=== PATIENT | female | born 1985 | race Caucasian/White ===

== ENCOUNTER 2017-09-27 09:10 | Inpatient (IN) | payer MEDICAID, SELFPAY ==
[2017-09-27 09:24] VITALS: BMI 29.9
[2017-09-27] MEDS: Lactated Ringers 1,000 ML 50 ML IV ×3 (09:30→18:52)
[2017-09-27 09:55] LABS: Hematocrit 29.9 % (37-47); Hemoglobin 10.4 g/dl (12.0-15.0); Mean Corp Hgb Conc 34.8 g/gl (32-36); Mean Corpuscular Hgb 30.6 pg (27.0-32.0); Mean Corpuscular Volume 87.9 fL (81-99); Mean Platelet Vol. 10.6 fl (6.2-12.0); Platelet Count 183 K/mm3 (150-450); RBC Distribution Width CV 13.1 % (11.6-14.6); RBC Distribution Width SD 42.5 fl (35.1-43.9); White Blood Count 6.8 K/mm3 (4.4-11.0)
[2017-09-27 09:56] LABS: Scan Indicated on CBC? Y/N NO
[2017-09-27] MEDS: Oxytocin 30 units/NS 500 ml 30 UNITS/500 ML IV.SOLN IV (10:15)
[2017-09-27] MEDS: 0.9% Normal Saline 100 ML IV.SOLN. INTRA-UTER (11:15)
--- NOTE | 2017-09-27 11:16 | PCM.HP.OB ---
- Problem List (1) Post-dates Status: Acute Qualifiers: Post-term type: 40-42 weeks gestation Qualified Code(s): O48.0 - Post-term (2) Short interval between pregnancies affecting , antepartum Status: Acute (3) Group B streptococcal infection Status: Acute (4) GBS (group B Streptococcus carrier), +RV culture, currently Status: Acute History Date of Admission: 09/27/17 Final DEJAH: 09/20/17 Final DEJAH Source: LMP Gestational age: 41 Weeks and 0 Days History of this : 32 year old female at 41 weeks by LMP, confirmed by 2nd trimester U/S. Here for postdates induction of labor. at bedside. OB history: Short interval, history of PROM at 40weeks. Allergies No Known Allergies Allergy (Verified 09/04/14 17:25) Current Medications Acetaminophen (Tylenol) 325 - 650 mg PO Q4H PRN PRN PRN Reason: PAIN OR FEVER >100.4F Al Hydroxide/Mg Hydroxide (Mylanta Ii) 15 - 30 ml PO Q4H PRN PRN PRN Reason: INDIGESTION Citric Acid/Sodium Citrate (Bicitra) 30 ml PO UD PRN Lactated Ringer's () 1,000 mls @ 50 mls/hr IV .Q20H DAT Oxytocin/Sodium Chloride () 30 units in 500 mls @ 1 mls/hr IV .Q500H DAT Penicillin G Potassium/Dextrose (Penicillin G Potassium) 3 mu in 50 mls @ 100 mls/hr IV Q4H DAT Nalbuphine HCl (Nubain) 5 - 10 mg IV Q3H PRN PRN PRN Reason: PAIN (4-10/10) Ondansetron HCl (Zofran) 4 mg IV Q8H PRN PRN PRN Reason: NAUSEA Promethazine HCl (Phenergan (Ll)) 6.25 - 12.5 mg IV Q4H PRN PRN; Protocol PRN Reason: IF NAUSEA PERSISTS Sodium Chloride () 5 - 15 ml IV UD DAT Smoking Status: Never smoker Alcohol: None Drug Use: none Number of Fetus(es): 1 Review of Systems Constitutional: Denies: Chills, Fever, Weight Change Cardiovascular: Denies: Chest Pain, Palpitations Respiratory: Denies: Cough, Shortness of breath at rest, Sputum production Gastrointestinal: Denies: Abdominal Pain, Nausea, Vomiting Physical Exam Vitals: Rubella Immune HIV negative HBsAG negative RPR negative GC/CT negative GBS positive O positive General: Alert, Oriented x3, No apparent distress Cardiovascular: Regular rate, Regular Rhythm, No murmurs Lungs: Clear to auscultation Abdomen: Gravid Extremities:: No edema, Deep tendon reflexes - +2/4 bilaterally Presentation: Cephalic Cervix Dilation (cm): 2 - Mendoza bulb inserted, inflated to 30ml NS, patient tolerated well. TOCO: every 3minutes, mild. Pitocin at 2mu's Station: -2 Effacement (%): 50 - FHT 135, moderate variability, accels, Category 1. Assessment/Plan Active and Suspected Problems Post-dates (Acute) Short interval between pregnancies affecting , antepartum (Acute) Group B streptococcal infection (Acute) GBS (group B Streptococcus carrier), +RV culture, currently (Acute) A: 32 year old at 41 weeks for Induction of Labor Post Dates GBS positive Short interval P: 1) Admit to L&D routine orders 2) Mendoza bulb inserted for cervical ripening 3) Pitocin, low dose. Continuous monitoring 4) Planning epidural for pain management. 5) notified of plan and collaborative physician. Karen Ding CNM
[2017-09-27] MEDS: 0.9% Saline Lock 10 ML Syringe IV (12:02)
--- NOTE | 2017-09-27 17:16 | PCM.PN.OB ---
Patient Problems: Active and Suspected Problems Post-dates (Acute) Short interval between pregnancies affecting , antepartum (Acute) Group B streptococcal infection (Acute) GBS (group B Streptococcus carrier), +RV culture, currently (Acute) Subjective: Resting in bed, comfortable with epidural. at bedside. Objective: FHT: 125, moderate variability, accels, early decels, Category 1 TOCO: q2-3.5 minutes, moderate to palpation Pitocin at 5mu's Cervix 5cm/-2 - Physical Exam Weight: 202 lb 6.15 oz Body Mass Index (BMI) 29.9 Intake and Output for Last 24 Hours 09/25/17 09/26/17 09/27/17 23:59 23:59 23:59 Output Total 200 / 200 Balance -200 / -200 Laboratory Tests Past 24 Hrs 09/27/17 09/27/17 09:40 09:40 WBC 6.8 RBC 3.40 L Hgb 10.4 L Hct 29.9 L MCV 87.9 MCH 30.6 MCHC 34.8 RDW 13.1 RDW Differential 42.5 Plt Count 183 MPV 10.6 Blood Type O POSITIVE Antibody Screen NEGATIVE Assessment/Plan Active and Suspected Problems Post-dates (Acute) Short interval between pregnancies affecting , antepartum (Acute) Group B streptococcal infection (Acute) GBS (group B Streptococcus carrier), +RV culture, currently (Acute) A: Pitocin Induction of Labor Active Labor, progressing Category 1 FHT P: 1) Continue with active management and increase on Pitocin. 2) Epidural for pain management
--- NOTE | 2017-09-27 20:01 | PN.OBGYN_ITS ---
Patient Problems: Active and Suspected Problems Post-dates (Acute) Short interval between pregnancies affecting , antepartum (Acute) Group B streptococcal infection (Acute) GBS (group B Streptococcus carrier), +RV culture, currently (Acute) Subjective: Resting in bed, comfortable with epidural. Turned side to side and started to have heart rate decelerations. Objective: FHR with llate decelerations with each contraction down to 60bpm. Pitocin turned off, O2 via face mask at 8L and fluid bolus. Patient turned side to side , FSE placed and then turned to hands and knees. FHR recovered. FHT:125, minimal variability, accels, Category 2 [place]: every 2-3 minutes, strong Cervix: 9cm/90%/-1 - Physical Exam Weight: 202 lb 6.15 oz Body Mass Index (BMI) 29.9 Intake and Output for Last 24 Hours 09/25/17 09/26/17 09/27/17 23:59 23:59 23:59 Output Total 700 / 700 Balance -700 / -700 Laboratory Tests Past 24 Hrs 09/27/17 09/27/17 09:40 09:40 WBC 6.8 RBC 3.40 L Hgb 10.4 L Hct 29.9 L MCV 87.9 MCH 30.6 MCHC 34.8 RDW 13.1 RDW Differential 42.5 Plt Count 183 MPV 10.6 Blood Type O POSITIVE Antibody Screen NEGATIVE Assessment/Plan Active and Suspected Problems Post-dates (Acute) Short interval between pregnancies affecting , antepartum (Acute) Group B streptococcal infection (Acute) GBS (group B Streptococcus carrier), +RV culture, currently (Acute) A: Active Labor, progressing Category 2 FHT P: 1) Continue with Pitocin off 2) Positional changes if tolerance 3) notified of labor progress, decelerations to 60, return to baseline, and recovery. Continue with management at this time.
[2017-09-27] MEDS: Oxytocin 30 units/NS 500 ml 30 UNITS/500 ML IV.SOLN 167 UNITS IV (21:43)
--- NOTE | 2017-09-27 22:05 | PCM.OB.VAG ---
- Problem List (1) Post-dates Status: Acute Qualifiers: Post-term type: 40-42 weeks gestation Qualified Code(s): O48.0 - Post-term (2) Short interval between pregnancies affecting , antepartum Status: Acute (3) Group B streptococcal infection Status: Acute (4) GBS (group B Streptococcus carrier), +RV culture, currently Status: Acute (5) Vaginal delivery Status: Acute (6) First degree perineal laceration during delivery Status: Acute Vaginal Delivery Maternal Presentation: Elective Induction Method of Induction: Pitocin, Mendoza Bulb Medical Reason for Induction: - - Postdates Amniotic Membrane Rupture Type: Artificial Amniotic Fluid Description: Clear, Moderate meconium - Fluid initially clear then in last 1.5hrs during pushing meconium stained fluid. Transition from lightly stained to moderate meconium. Final DEJAH: 09/20/17 Final DEJAH Source: LMP Gestational age: 41 Weeks and 0 Days Date of Procedure: 09/27/17 Pre-Operative Diagnosis: Induction of Labor Post-Operative Diagnosis: Vaginal delivery Surgery/ Procedure Performed: Spontaneous Vaginal Delivery Type of Anesthesia: Epidural Description of Procedure: Labor progressed to 9cm and late decelerations after each contractions for approximately 6 minutes. Return to baseline with minimal variability and accels. Patient then rapidly progressed to complete cervical dilation and +1 station with urge to push. Service Desk Manager and respiratory called to room for delivery due to meconium stained fluid. presentation was OP. Minimal descent with pushing efforts and multiple positions for pushing. notified of FHT in 60s with return back to baseline but close to delivery. of viable male over 1st degree perineal laceration. delivered OP with double nuchal, delivered through and unwound after delivery. Placed on maternal abdomen. Strong cry. Wiped with blankets and mouth and nares suctioned for secretions. Delayed cord clamping until pulsations ceased. Cord clamped and cut by FOB. Pitocin given IVPB after delivery for active 3rd stage management. Placenta delivered via fredrick, intact, 3 vessels cord. Perineum inspected and revealed 1st degree perineal laceration. Repaired with 3.0 vicryl, figure 8 stitch, well approximated and hemostatic. Fundus firm, hemostasis achieved, EBL 200ml. Planning to breastfeed. Mother and baby stable, family bonding well. notified of delivery. Presentation: Vertex - Direct OP Placental Delivery Description: Spontaneous Placenta Disposition: [facility] Cord Vessel Description: 3 Vessels Nuchal Cord Compression: Without compression - Nuchal cord x 2 Cord Entanglement: Around neck x 2, loose Estimated Blood Loss: 200ml Infant A gender: Male (1 minute): 8 (5 minute): 9 Episiotomy Description: None Laceration: Perineal Extension/lac, 1st degree Medications given after delivery: IV Pitocin
[2017-09-27] MEDS: Oxytocin 30 units/NS 500 ml 30 UNITS/500 ML IV.SOLN 334 UNITS IV (22:43)
[2017-09-28 03:09] VITALS: BP 113/61; PULSE 51; RESP 16; TEMP 36.3
--- NOTE | 2017-09-28 03:13 | NURSING ---
pt passed 50 cent piece sized clot when voiding. bleeding otherwise wnl. will monitor
[2017-09-28 07:50] VITALS: BP 107/67; PULSE 59; RESP 14; TEMP 36.6; O2SAT 99
[2017-09-28] MEDS: Prenatal Vits Tablet 1 TABLET PO (10:38)
[2017-09-28 11:58] VITALS: BP 107/68; PULSE 58; RESP 16; TEMP 36.3; O2SAT 99
--- NOTE | 2017-09-28 13:03 | PCM.PN.OB ---
Patient Problems: Active and Suspected Problems Post-dates (Acute) Short interval between pregnancies affecting , antepartum (Acute) Group B streptococcal infection (Acute) GBS (group B Streptococcus carrier), +RV culture, currently (Acute) Vaginal delivery (Acute) First degree perineal laceration during delivery (Acute) Subjective: Doing well per patient and nursing staff. Ambulating and taking PO without difficulty. Voiding and passing flatus. Bottle feeding with no complaints. Denies headache, visual changes, chest pain, shortness of breath, increased vaginal bleeding or large clots. Planning for d/c home tomorrow. - Physical Exam General: Alert, Oriented x3, Cooperative Lungs: Clear to auscultation, Normal air movement Cardiovascular: Regular rate, Regular Rhythm, No murmurs Abdomen: Bowel Sounds Present, Soft, Non Tender, - - Fundus firm 2 below Extremities: No edema, Capillary Refill Less than 3 Seconds, - - Lydia's negative Psych/Mental Status: Normal Affect, Appropriate Vital Signs Temp Pulse Resp BP Pulse Ox 97.3 F L 58 L 16 107/68 99 09/28/17 11:58 09/28/17 11:58 09/28/17 11:58 09/28/17 11:58 09/28/17 11:58 Oxygen Delivery Method Room Air Weight: 202 lb 6.15 oz Body Mass Index (BMI) 29.9 Intake and Output for Last 24 Hours 09/26/17 09/27/17 09/28/17 23:59 23:59 23:59 Intake Total 691 / 691 Output Total 700 / 700 800 / 800 Balance -9 / -9 -800 / -800 Assessment/Plan Active and Suspected Problems Post-dates (Acute) Short interval between pregnancies affecting , antepartum (Acute) Group B streptococcal infection (Acute) GBS (group B Streptococcus carrier), +RV culture, currently (Acute) Vaginal delivery (Acute) First degree perineal laceration during delivery (Acute) A: PPD#1 1st degree perineal laceration P: 1)Routine PP care 2)Bottlefeeding 3)Planning for D/C home tomorrow.
[2017-09-28 15:07] VITALS: BP 119/65; PULSE 62; RESP 14; TEMP 36.5; O2SAT 99
[2017-09-28 18:00] VITALS: BP 127/77; PULSE 58; RESP 16; TEMP 36.7; O2SAT 98
[2017-09-28 20:00] VITALS: BP 110/64; PULSE 60; RESP 16; TEMP 36.3; O2SAT 98
[2017-09-29 02:00] VITALS: BP 130/65; PULSE 60; RESP 14; TEMP 36.6
--- NOTE | 2017-09-29 07:36 | PCM.DCVAG ---
Discharge Diet: No Restrictions Discharge Activity: Return to Normal Activity, May not drive while taking narcotic pain medications., May Shower May resume sexual activity in: 4-6 weeks Additional Activity Instructions:: Nothing in the vagina for 4-6 weeks. You may return to work/school in 6 weeks. Call your doctor if your incision/area has: Continuous Slow Oozing, Sudden Increased Bleeding, Increased Pain/ Swelling, Increased Redness, Foul Smelling Discharge Call your doctor if you observe: Fever of 101 or Higher, Inability to urinate, Inability to have a bowel movement, Using more than one pad per hour, Calf discomfort, Uncontrolled pain Additional Instructions: If you experience any of the following, contact your healthcare provider. Bleeding that soaks a pad every hour for 2 hours Fever 100.4 or higher Unrelieved incision or abdominal pain Swelling, redness, discharge or bleeding from your incision or episiotomy site Your incision begins to separate Problems urinating (including inability to urinate or burning while urinating). Visual changes Severe headache Flu-like symptoms Pain or redness in one of both of your breasts Pain, warmth, tenderness or swelling in your legs, especially the calf area Frequent nausea and vomiting Symptoms of depression or anxiety If you experience any of the following, call 911 or go to the nearest Emergency Room. Chest pain Problems breathing Seizure activity Partial or complete paralysis of a body part, slurred speech, weakness or drooping of the face, or a sudden inability to walk or hold your balance Allergies/Adverse Reactions: Allergies No Known Allergies Allergy (Verified 09/04/14 17:25) Medications to take at Discharge Vits [Prenatabs FA ] 1 tablet PO DAILY 09/04/14 Acetaminophen [Tylenol] 1,000 mg PO Q8H PRN PRN tablet 09/29/17 Naproxen [Naprosyn] 250 - 500 mg PO Q8H PRN PRN tablet 09/29/17 Senna/Docusate Sodium [Senokot-S] 1 - 2 tablet PO DAILY PRN PRN tablet 09/29/17 When: Call to make an appointment with your doctor in 6 weeks. If you had elevated Blood Pressure or 4th degree laceration you will need to be seen in 2 weeks. Primary Care Physician: Care Physician,No Primary [Primary Care Provider] -
--- NOTE | 2017-09-29 07:40 | DCINST_ITS ---
Discharge Diet: No Restrictions Discharge Activity: Return to Normal Activity, May not drive while taking narcotic pain medications., May Shower May resume sexual activity in: 4-6 weeks Additional Activity Instructions:: Nothing in the vagina for 4-6 weeks. You may return to work/school in 6 weeks. Call your doctor if your incision/area has: Continuous Slow Oozing, Sudden Increased Bleeding, Increased Pain/ Swelling, Increased Redness, Foul Smelling Discharge Call your doctor if you observe: Fever of 101 or Higher, Inability to urinate, Inability to have a bowel movement, Using more than one pad per hour, Calf discomfort, Uncontrolled pain Additional Instructions: If you experience any of the following, contact your healthcare provider. * Bleeding that soaks a pad every hour for 2 hours * Fever 100.4 or higher * Unrelieved incision or abdominal pain * Swelling, redness, discharge or bleeding from your incision or episiotomy site * Your incision begins to separate * Problems urinating (including inability to urinate or burning while urinating) . * Visual changes * Severe headache * Flu-like symptoms * Pain or redness in one of both of your breasts * Pain, warmth, tenderness or swelling in your legs, especially the calf area * Frequent nausea and vomiting * Symptoms of depression or anxiety If you experience any of the following, call 911 or go to the nearest Emergency Room. * Chest pain * Problems breathing * Seizure activity * Partial or complete paralysis of a body part, slurred speech, weakness or drooping of the face, or a sudden inability to walk or hold your balance Allergies/Adverse Reactions: Allergies No Known Allergies Allergy (Verified 09/04/14 17:25) Medications to take at Discharge Vits [Prenatabs FA ] 1 tablet PO DAILY 09/04/14 Acetaminophen [Tylenol] 1,000 mg PO Q8H PRN PRN tablet 09/29/17 Naproxen [Naprosyn] 250 - 500 mg PO Q8H PRN PRN tablet 09/29/17 Senna/Docusate Sodium [Senokot-S] 1 - 2 tablet PO DAILY PRN PRN tablet When: Call to make an appointment with your doctor in 6 weeks. If you had elevated Blood Pressure or 4th degree laceration you will need to be seen in 2 weeks. Primary Care Physician: Care Physician,No Primary [Primary Care Provider] -
--- NOTE | 2017-09-29 08:07 | PCM.PN.BLA ---
Progress Note S: Patient laying back in bed, at bedside providing support. Patient reports no issues at this time, desires discharge to home. O: VSS, Afebrile Nipples without cracks, blisters or ecchymoses. Soft breasts. Abdomen soft NT x 4 quadrants, FF midline @ 2FB below umbilicus +2/4 reflexes in LE, no edema, negative calf tenderness BL to palpation scant rubra lochia, intact perineum A: 32 y/o, G3 now P3, PPD # 2 s/p , Normal PP Course P: 1) Discharge to home pending discharge 2) Anticipatory PP and homegoing teaching done 3) Binding of breasts encouraged as patient is not planning on 4) RTC at [facility] @ 6 weeks PP Padmini Cho CNM
--- NOTE | 2017-09-29 08:11 | PN_ITS ---
Progress Note S: Patient laying back in bed, at bedside providing support. Patient reports no issues at this time, desires discharge to home. O: VSS, Afebrile Nipples without cracks, blisters or ecchymoses. Soft breasts. Abdomen soft NT x 4 quadrants, FF midline @ 2FB below umbilicus +2/4 reflexes in LE, no edema, negative calf tenderness BL to palpation scant rubra lochia, intact perineum A: 32 y/o, G3 now P3, PPD # 2 s/p , Normal PP Course P: 1) Discharge to home pending discharge 2) Anticipatory PP and homegoing teaching done 3) Binding of breasts encouraged as patient is not planning on 4) RTC at [facility] @ 6 weeks PP Padmini Cho CNM
[2017-09-29 08:20] VITALS: BP 116/73; PULSE 56; RESP 16; TEMP 36.2; O2SAT 100
== END 2017-09-29 10:10 | disposition home or self-care (01) | DRG 372 ==
PROVIDERS: Admitting Provider Obstetrics & Gynecology; Visit Provider Obstetrics & Gynecology
DX: O48.0 Post-term pregnancy (principal); O98.82 Other maternal infectious and parasitic diseases complicating childbirth; B95.1 Streptococcus, group B, as the cause of diseases classified elsewhere; O77.0 Labor and delivery complicated by meconium in amniotic fluid; O69.81X0 Labor and delivery complicated by cord around neck, without compression, not applicable or unspecified; O76 Abnormality in fetal heart rate and rhythm complicating labor and delivery; O70.0 First degree perineal laceration during delivery; Z3A.41 41 weeks gestation of pregnancy; Z37.0 Single live birth
CPT/HCPCS: 59025; 59050; 85027; 86850; 86900; 99218; J7050; J7120; A4216; G0378

== ENCOUNTER 2023-04-19 09:41 | Emergency (ER) | payer MEDICAID, SELFPAY ==
[2023-04-19 09:42] VITALS: BP 140/103; PULSE 83; RESP 14; TEMP 36.4; O2SAT 99; BMI 30.4
--- NOTE | 2023-04-19 10:03 | EDS_ITS ---
HPI History of Present Illness Chief Complaint: Foreign Body Detail of Chief Complaint: She was setting up a kumari. She stapled her left index and long finger tog Informant: patient Occured/Mechanism Mechanism/Context: Yes injury Comment: Stapled index and long finger together. Onset/Context/Timing Context: Sudden Onset Timing: Continuous Quality of Pain: Dull and Aching Location: Left long finger Current Severity: Mild Maximum Severity: Moderate Worsened by: Movement Relieved by: Nothing Associated Symptoms Associated Symptoms: Negative for Parasthesia or Weakness Narrative Narrative: Patient is a 37-year-old [id number] woman who presents with injury to her left index and long finger. This occurred when she was satting up a kumari. 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 She stapled the volar pad of her index finger and volar pad of her long finger. She was able to get the prong out of the index finger but not the long finger. Last tetanus was 5 years ago. Tetanus Immunization: 5-10 years Prior similar symptoms: No Recent Illness/Hospitalization: No PFSH PFSH Medical History no medical history no medical history Home Medications vits,calcium no.78-iron fumarate-folic acid 29 mg-1 mg tablet (Prenatabs FA) 1 tab PO DAILY 09/04/14 [History Last Taken 09/25/17 one] acetaminophen 500 mg tablet 1,000 mg (2 x 500 mg) PO Q8H PRN PRN MILD PAIN (1- 3/10)/Temp>99.6F 09/29/17 [Rx Last Taken Unknown] naproxen 250 mg tablet 250 - 500 mg (1 - 2 x 250 mg) PO Q8H PRN PRN Mild Pain (1-3/10) 09/29/17 [Rx Last Taken Unknown] sennosides 8.6 mg-docusate sodium 50 mg tablet (Stool Softener-Stimulant Laxative) 1 - 2 tab PO DAILY PRN PRN Constipation 09/29/17 [Rx Last Taken Unknown] Allergy/AdvReac Type Severity Reaction Status Date / Time No Known Allergies Allergy Verified 04/19/23 09:43 Social History Smoking Status: Never smoker ROS ROS ED Integumentary Reports other Details: Puncture wound volar fat pad index finger and long finger, left side ; Denies rash Neurologic Neurologic: Denies paresthesias or weakness Hematologic/Lymphatic Hematologic/Lymphatic: Denies easy bleeding or easy bruising EXAM Physical Exam Const Vital Signs: 04/19/23 09:42 Temperature 97.6 F L Temperature Source Temporal Pulse Rate 83 Respiratory Rate 14 Blood Pressure 140/103 H Blood Pressure Mean 115 Pulse Ox 99 Oxygen Delivery Method Room Air Positive well nourished and well developed General Appearance ED: well developed and NAD HEENT normocephalic and atraumatic Eyes PERRL and EOMs intact bilaterally Resp normal respiratory effort Cardio regular rate and regular rhythm Extremity Extremity Narrative: Puncture wound noted volar fat pad of left index finger. There is no evidence of infection. Staple is still in place volar fat pad of long finger. There is no subungual hematoma of the index or long finger. Extensor and flexor mechanism intact. Two-point discrimination is normal. Neuro oriented x3, CN's II-XII intact bilaterally and moves all extremities Psych mental status grossly normal Skin Skin Narrative: Puncture wound volar fat pad of the index and long finger, left hand MDM MDM MDM Narrative Medical decision making narrative: Patient was informed to anesthetize the digit would be more painful than just removing the staple. The staple was removed using a pair of pliers. Imaging is not indicated. Procedures Other Procedures Procedure(s): Removal of metallic soft tissue foreign body Discharge Plan Triage Chief Complaint: Foreign Body ED Provider: Pio Ferris Dx/Rx/DC Orders Clinical Impression: Foreign body in soft tissue, Puncture wound of left middle finger, Puncture wound of left index finger Instructions: ED Foreign Body Soft Tissue Prescriptions: No Action vit,[id number] [Prenatabs FA] 1 TABLET tablet 1 tab PO DAILY sennosides-docusate sodium [Stool Softener-Stimulant Laxat] 1 TABLET tablet 1 - 2 tab PO DAILY PRN PRN (Reason: Constipation ) 0RF naproxen 250 MG tablet 250 - 500 mg PO Q8H PRN PRN (Reason: Mild Pain (1-3/10)) 0RF acetaminophen 500 MG tablet 1,000 mg PO Q8H PRN PRN (Reason: MILD PAIN (1-3/10)/Temp>99.6F) 0RF Primary Care Provider: Care Physician,No Primary Referrals: Care Physician,No Primary [Primary Care Provider] - Doctor,Your [Non-Staff] - As Needed Activity Restrictions/Additional Instructions: The name of the doctor is on your your insurance card issued to you by [facility] Disposition Disposition: Home, Self Care
== END 2023-04-19 10:29 | disposition home or self-care (01) ==
PROVIDERS: Emergency Provider Emergency Medicine; Visit Provider Emergency Medicine
DX: S61.241A Puncture wound with foreign body of left index finger without damage to nail, initial encounter (principal); S61.243A Puncture wound with foreign body of left middle finger without damage to nail, initial encounter; W29.8XXA Contact with other powered hand tools and household machinery, initial encounter; Y93.89 Activity, other specified
CPT/HCPCS: 99282

== ENCOUNTER 2023-09-08 10:08 | Emergency (ER) | payer MEDICAID, SELFPAY ==
[2023-09-08] VITALS (7 sets, daily range): BP systolic 122–154; BP diastolic 76–90; PULSE 69–82; RESP 14–20; TEMP 36.4–36.6; O2SAT 97–100; BMI 31.7
--- NOTE | 2023-09-08 10:38 | ED.VIS.LOWEX ---
HPI History of Present Illness Chief Complaint: Lower Extremity Injury Informant: patient and spouse/S.O. Narrative Narrative: 38-year-old female presenting to the emergency room with left ankle injury. Patient states that she slipped and fell on ice this morning injuring the ankle. She went to urgent care where she had x-rays that revealed a fracture and was placed in a boot orthosis and referred to the emergency room. She denies any other injuries. In reviewing the films she appears to have a medial and lateral malleoli are fracture with dislocation. Posterior malleolus appears intact. She notes that the toes feel normal and she is able to move them. She has only had water so far this morning. No prior problems with anesthesia. PFSH PFSH Home Medications vits,calcium no.78-iron fumarate-folic acid 29 mg-1 mg tablet (Prenatabs FA) 1 tab PO DAILY 09/04/14 [History Last Taken 09/25/17 one] acetaminophen 500 mg tablet 1,000 mg (2 x 500 mg) PO Q8H PRN PRN MILD PAIN (1-3/10)/Temp>99.6F 09/29/17 [Rx Last Taken Unknown] naproxen 250 mg tablet 250 - 500 mg (1 - 2 x 250 mg) PO Q8H PRN PRN Mild Pain (1-3/10) 09/29/17 [Rx Last Taken Unknown] sennosides 8.6 mg-docusate sodium 50 mg tablet (Stool Softener-Stimulant Laxative) 1 - 2 tab PO DAILY PRN PRN Constipation 09/29/17 [Rx Last Taken Unknown] oxycodone-acetaminophen 5 mg-325 mg tablet 1 tab PO Q6H PRN PRN pain 5 days #20 TABLETS 09/08/23 [Rx Last Taken Unknown] Allergy/AdvReac Type Severity Reaction Status Date / Time No Known Allergies Allergy Verified 09/08/23 10:09 Social History Smoking Status: Never smoker ROS ROS ED Constitutional Constitutional ED: Denies chills, fever(s) or weight loss Eyes Eyes: Denies change in vision or diplopia ENT ENT ED: Denies ear pain, rhinorrhea or sore throat Cardiovascular Cardiovascular: Denies chest pain, orthopnea, palpitations or racing heartbeat Respiratory/Chest Respiratory/Chest: Denies cough, dyspnea or orthopnea Gastrointestinal Gastrointestinal: Denies abdominal pain, diarrhea, nausea or vomiting Genitourinary Genitourinary ED: Denies dysuria, hematuria or urinary frequency Musculoskeletal Musculoskeletal: Reports other Details: Left ankle injury ; Denies arthralgias, back pain, myalgias or neck pain Integumentary Denies abscess or rash Neurologic Neurologic: Denies headache(s) or weakness Psychiatric Psychiatric: Denies anxiety, depression, suicidal ideation or suicidal thoughts Endocrine Endocrinology: Denies polydipsia, polyphagia or polyuria Allergic/Immunologic Allergic/Immunologic ED: Denies mouth swelling, tongue swelling or urticaria EXAM Physical Exam Const Vital Signs: 09/08/23 10:08 09/08/23 10:56 09/08/23 11:08 Temperature 97.8 F 97.8 F Temperature Source Temporal Pulse Rate 78 71 Pulse Rate [1 (Initial Baseline)] 76 Pulse Rate [2] 78 Pulse Rate [5] 81 Pulse Rate [6] 82 Pulse Rate [7] 77 Pulse Rate [8] 70 Pulse Rate [9] 69 Respiratory Rate 14 16 Respiratory Rate [1 (Initial Baseline)] 16 Respiratory Rate [2] 16 Respiratory Rate [5] 16 Respiratory Rate [6] 16 Respiratory Rate [7] 20 H Respiratory Rate [8] 16 Respiratory Rate [9] 16 Blood Pressure 146/89 H 136/87 H Blood Pressure [1 (Initial Baseline)] 137/88 H Blood Pressure [2] 140/87 H Blood Pressure [5] 124/84 H Blood Pressure [6] 128/78 H Blood Pressure [7] 124/77 H Blood Pressure [8] 127/77 H Blood Pressure [9] 122/86 H Blood Pressure Mean 108 Pulse Ox 100 100 Oxygen Delivery Method Room Air Nasal Cannula Oxygen Delivery Method [1 (Initial Baseline)] Nasal Cannula Oxygen Delivery Method [2] Nasal Cannula Oxygen Delivery Method [3] Nasal Cannula Oxygen Delivery Method [5] Nasal Cannula Oxygen Delivery Method [6] Nasal Cannula Oxygen Delivery Method [7] Nasal Cannula Oxygen Delivery Method [8] Nasal Cannula Oxygen Delivery Method [9] Room Air Oxygen Flow Rate (L/min) 2 Oxygen Flow Rate (L/min) [1 (Initial Baseline)] 2 Oxygen Flow Rate (L/min) [2] 3.5 Oxygen Flow Rate (L/min) [5] 3.5 Oxygen Flow Rate (L/min) [6] 3.5 Oxygen Flow Rate (L/min) [7] 3.5 Oxygen Flow Rate (L/min) [8] 3.5 Oxygen Flow Rate (L/min) [9] 0 Fraction of Inspired Oxygen (FIO2) [7] 3.5 09/08/23 11:44 09/08/23 11:49 09/08/23 11:54 Temperature Temperature Source Pulse Rate Pulse Rate [1 (Initial Baseline)] Pulse Rate [2] Pulse Rate [5] Pulse Rate [6] Pulse Rate [7] Pulse Rate [8] Pulse Rate [9] Respiratory Rate Respiratory Rate [1 (Initial Baseline)] Respiratory Rate [2] Respiratory Rate [5] Respiratory Rate [6] Respiratory Rate [7] Respiratory Rate [8] Respiratory Rate [9] Blood Pressure Blood Pressure [1 (Initial Baseline)] Blood Pressure [2] Blood Pressure [5] Blood Pressure [6] Blood Pressure [7] Blood Pressure [8] Blood Pressure [9] Blood Pressure Mean Pulse Ox Oxygen Delivery Method Room Air Room Air Room Air Oxygen Delivery Method [1 (Initial Baseline)] Oxygen Delivery Method [2] Oxygen Delivery Method [3] Oxygen Delivery Method [5] Oxygen Delivery Method [6] Oxygen Delivery Method [7] Oxygen Delivery Method [8] Oxygen Delivery Method [9] Oxygen Flow Rate (L/min) 100 Oxygen Flow Rate (L/min) [1 (Initial Baseline)] Oxygen Flow Rate (L/min) [2] Oxygen Flow Rate (L/min) [5] Oxygen Flow Rate (L/min) [6] Oxygen Flow Rate (L/min) [7] Oxygen Flow Rate (L/min) [8] Oxygen Flow Rate (L/min) [9] Fraction of Inspired Oxygen (FIO2) [7] 09/08/23 12:08 Temperature 97.6 F L Temperature Source Pulse Rate 72 Pulse Rate [1 (Initial Baseline)] Pulse Rate [2] Pulse Rate [5] Pulse Rate [6] Pulse Rate [7] Pulse Rate [8] Pulse Rate [9] Respiratory Rate 16 Respiratory Rate [1 (Initial Baseline)] Respiratory Rate [2] Respiratory Rate [5] Respiratory Rate [6] Respiratory Rate [7] Respiratory Rate [8] Respiratory Rate [9] Blood Pressure 136/76 H Blood Pressure [1 (Initial Baseline)] Blood Pressure [2] Blood Pressure [5] Blood Pressure [6] Blood Pressure [7] Blood Pressure [8] Blood Pressure [9] Blood Pressure Mean 96 Pulse Ox 99 Oxygen Delivery Method Oxygen Delivery Method [1 (Initial Baseline)] Oxygen Delivery Method [2] Oxygen Delivery Method [3] Oxygen Delivery Method [5] Oxygen Delivery Method [6] Oxygen Delivery Method [7] Oxygen Delivery Method [8] Oxygen Delivery Method [9] Oxygen Flow Rate (L/min) Oxygen Flow Rate (L/min) [1 (Initial Baseline)] Oxygen Flow Rate (L/min) [2] Oxygen Flow Rate (L/min) [5] Oxygen Flow Rate (L/min) [6] Oxygen Flow Rate (L/min) [7] Oxygen Flow Rate (L/min) [8] Oxygen Flow Rate (L/min) [9] Fraction of Inspired Oxygen (FIO2) [7] Positive well nourished and well developed General Appearance ED: well developed HEENT Reports normocephalic, head/scalp atraumatic and moist mucous membranes Eyes PERRL and EOMs intact bilaterally Neck no lymphadenopathy, supple and no JVD Resp normal respiratory effort and clear to auscultation bilaterally Cardio regular rate, regular rhythm and no murmurs GI normal to inspection, nondistended, normoactive bowel sounds and non-tender Palpation: soft Back/Spine no CVA tenderness and normal ROM Extremity Extremity Narrative: Left ankle demonstrates diffuse swelling both medial laterally and posteriorly. Neurovascular intact distal. There is tenderness diffusely of the ankle. Neuro oriented x3 and CN's II-XII intact bilaterally Sensorium / Orientation: alert Motor Exam: strength 5/5 throughout Psych mental status grossly normal Mood & Affect: Negative for depressed or tearful Skin no rashes or lesions noted and no wounds MDM MDM MDM Narrative Medical decision making narrative: Patient provided informed written consent for procedural sedation using propofol for the reduction of the fracture/dislocation. Patient was placed on the monitor given supplemental oxygen CO2 and oxygen status were monitored as well as heart rate and blood pressure. Patient initially received 1 mg/kg bolus followed by 0.5 mg/kg aliquots to ensure achieved sedation and maintain sedation for the duration of the procedure. A well-padded posterior stirrup Ortho-Glass splint was placed on the patient. Pain careful attention to allow adequate padding due to the significant swelling which is most likely to occur was made. Patient was allowed to recover without any incidents. I in attempting interpretation of the postreduction films is satisfactory position of the fragments in the mortise. Dr. Brower from foot and ankle was on and came to the emergency department saw the patient. A CT of the lower extremity was obtained for preoperative planning. There appears to be a small avulsion fracture from the posterior malleolus making this therefore a Tri mall fracture. I will write for the patient to have pain medication. She will remain not weightbearing and has crutches. History & Record Review Discussion w/independent historian: Patient and Significant other Lab Data Attestation: I reviewed the patient's lab results. Radiography Diagnostic Testing: Clinical Impression(s) from Imaging Studies Ankle X-Ray 09/08/23 11:35 IMPRESSION: Satisfactory reduction of the medial malleolar fracture as well as the distal lateral malleolar fracture. Soft tissue swelling. Electronically Signed: Ronen Armendariz MD at 11:55 EST , Lower Extremity CT 09/08/23 12:00 IMPRESSION: Nondisplaced avulsion fracture of the medial malleolus as well as oblique fracture of the lateral malleolus with overlying soft tissue swelling. Avulsion fracture of the posterior malleolus of the distal tibia. Persistent asymmetry of the ankle mortise. Electronically Signed: Ronen Armendariz MD at 12:36 EST , Management Discussion w/another healthcare provider: Gas Bo[employer] (Dr. Brower (Podiatry)) Procedures Procedural Sedation 1 (Initial Baseline): Consent Signed: Yes Any Problems With Anesthesia: No You/Your family experience fever (hyperthermia) w/anesthesia: No Sedation medication: Propofol Dose: 250 (mg) Route: IV Total Moderate Sedation Units: 26 (min) Maliampati Score: Class I ASA Classification: I Discharge Plan Triage Chief Complaint: Lower Extremity Injury ED Provider: James Leonard Dx/Rx/DC Orders Clinical Impression: Fall, Left ankle pain, Displaced trimalleolar fracture of left ankle Instructions: ED Ankle Fracture Prescriptions: New oxycodone-acetaminophen [oxycodone-acetaminophen] 5-325 mg tablet 1 tab PO Q6H PRN PRN (Reason: pain) 5 Days Qty: 20 0RF No Action vit,[id number] [Prenatabs FA] 1 TABLET tablet 1 tab PO DAILY sennosides-docusate sodium [Stool Softener-Stimulant Laxat] 1 TABLET tablet 1 - 2 tab PO DAILY PRN PRN (Reason: Constipation ) 0RF naproxen 250 MG tablet 250 - 500 mg PO Q8H PRN PRN (Reason: Mild Pain (-10/23)) 0RF acetaminophen 500 MG tablet 1,000 mg PO Q8H PRN PRN (Reason: MILD PAIN (-10/23)/Temp>99.6F) 0RF Primary Care Provider: Care Physician,No Primary Referrals: Omid Brower DPM [Med Staff - Active Staff] - As soon as possible Care Physician,No Primary [Primary Care Provider] - Disposition Disposition: Home, Self Care Discharge Date/Time: 09/08/23 12:44
[2023-09-08] MEDS: Morphine 4 MG/ML Syringe IV ×2 (10:48→11:50)
[2023-09-08] MEDS: Ondansetron 4 MG/2 ML Vial IV (10:48)
[2023-09-08] MEDS: Propofol 200 MG/20 ML Vial IV BOLUS (10:49)
--- OUTSIDE RECORDS SUMMARY | 2023-09-08 11:00 | XMS RPT_ITS | CCD ---
Author Name Unknown Address [address] [place] [address] Organization [facility] Care Team Providers Care Toddler Teacher Name Role Phone Pcp, No Unavailable Unavailable Pcp, No Unavailable Unavailable JAISONBERTA Attending Unavailable Medications Completed/Discontinued Medications Medication Drug Class(es) Dates Sig (Normalized) Sig (Original) Ethinyl Estradiol / norgestimate (4 sources) Progestin, Estrogen Start: 03-03-2023 take 1 tablet by mouth once daily norgestimate 0.25 mg-ethinyl estradiol 35 mcg (SPRINTEC) 0.25-35 mg-mcg per tablet Take 1 tablet by mouth once daily. 84 tablet 4 03/03/2023 Active Problems Problem Classification Problem Date Documented Da te Episodic/Chronic Contraceptive and procreative management (1 source) Oral contraception; Translations: [Encounter for surveillance of contraceptive pills] 03-03-2023 Episodic Results Test Name Value Interpretation Reference Range Facil ity Vital Signs Date Time Vital Sign Value Performing Clinician Martin rizo 03-03-2023 09:36-0400 Body height 170.2 cm Berta Jaison SENIOR CLIMATE ADVISOR.OR SCRUB TECH Work Phone: [facility] 03-03-2023 09:36-0400 Body weight 89.36 kg Berta Jaison SENIOR CLIMATE ADVISOR.OR SCRUB TECH Work Phone: [facility] 03-03-2023 09:36-0400 Diastolic blood pressure 72 mm[Hg] Berta Huron SENIOR CLIMATE ADVISOR.OR SCRUB TECH Work Phone: [facility] 03-03-2023 09:36-0400 Systolic blood pressure 118 mm[Hg] Berta Huron SENIOR CLIMATE ADVISOR.OR SCRUB TECH Work Phone: [facility] Encounters Encounter Date Encounter Type Care Provider Facility Start: 03-03-2023 End: 03-03-2023 ambulatory BERTAJAYCEE BRAGGJAISON Facility:[facility] Start: 03-03-2023 End: 03-03-2023 Patient encounter procedure Berta Braggcalf SENIOR CLIMATE ADVISOR.BLUE Work Phone: OB/Gynecology Plan of Treatment Date Care Activity Detail Author Start: 07-02-2027 Urine microalbumin profile DTA P,TDAP,TD (4 - Td or Tdap) [facility] Start: 02-27-2026 HPV TESTING HPV TESTING [facility] Start: 02-27-2026 PAP TESTING PAP TESTING [facility] Start: 04-16-2023 Influenza vaccination INFLUENZA (#1) [facility] Start: 08-16-2022 DEPRESSION ASSESSMENT DEPRESSION ASS ESSMENT [facility] Start: 04-16-2022 Influenza vaccination INFLUENZA (#1) [facility] Start: 07-16-2021 COVID-19 VACCINE (3 - Booster for Pfizer series) COVID-19 VACCINE (3 - Booster for Pfizer series) [facility] Start: 07-16-2021 COVID-19 VACCINE (3 - Pfizer series) COVID-19 VACCINE (3 - Pfizer series) [facility] Start: 2003 HEPATITIS C SCREENING HEPATITIS C [facility] Start: 1997 Adult depression scr [facility] assessment DEPRESSION SCREENING [facility] Start: 1985 HEPATITIS B (1 of 3 - 3-dose series) HEPATITIS B (1 of 3 - 3-dose series) [facility] Immunizations Immunization Date Immunization Notes Care Provider Niesha sullivan 07-02-2017 tetanus toxoid, redu dean diphtheria toxoid, and acellular pertussis vaccine, adsorbed Berta Huron SENIOR CLIMATE ADVISOR.OR SCRUB TECH Work Phone: [facility] 05-12-2017 influenza, injectabl e, quadrivalent, contains preservative Berta Jaison SENIOR CLIMATE ADVISOR.OR SCRUB TECH Work Phone: [facility] 01-09-2016 tetanus toxoid, redu dean diphtheria toxoid, and acellular pertussis vaccine, adsorbed Berta Huron SENIOR CLIMATE ADVISOR.BLUE Work Phone: [facility] 07-05-2014 tetanus toxoid, redu dean diphtheria toxoid, and acellular pertussis vaccine, adsorbed Berta Jaison SENIOR CLIMATE ADVISOR.OR SCRUB TECH Work Phone: [facility] Work Phone: 06-06-2014 influenza, seasonal, injectable Berta Huron SENIOR CLIMATE ADVISOR.OR SCRUB TECH Work Phone: [facility] Work Phone: 06-03-2009 influenza virus vaccine, unspecified formulation Berta Huron SENIOR CLIMATE ADVISOR.OR SCRUB TECH Work Phone: [facility] Work Phone: Payers Date Payer Category Payer Medicaid [id number] 2017 Medicaid [id number] Social History Date Type Detail Facility Start: 05-18-2011 Tobacco smoking stat us AZIS Never smoked tobacco [facility] Start: 05-18-2011 Tobacco use and exposure Smoke less tobacco non-user [facility] Start: 07-20-2021 End: 03-03-2023 Alcohol intake Current drinker of alcohol (finding) [facility] Start: 02-26-2014 History SDOH Alcohol Comment occasional, NOT WHILE [facility] Start: 01-15-2020 History SDOH Social Connections Phone 4 [facility] Start: 01-15-2020 History SDOH Social Connections Get Together 2 [facility] Start: 01-15-2020 History SDOH Social Connections L[employer] 3 [facility] Start: 01-15-2020 History SDOH Social Connections Membership 1 [facility] Start: 01-15-2020 History SDOH Financial 5 [facility] Start: 01-15-2020 Education 17 [facility] Start: 1985 Sex Assigned At Not on file [facility] Start: 01-15-2020 End: 03-03-2023 History of Social function [facility] Work Phone: Start: 01-15-2020 End: 03-03-2023 Social connection and isolation panel [facility] Work Phone: Do you belong to any clubs or organizations such as yazidism groups, unions, fraternal or athletic groups, or school groups? Yes [facility] Work Phone: Are you now , , , , never or living with a partner? [facility] Work Phone: How hard is it for y ou to pay for the very basics like food, housing, medical care, and heating Not hard at all [facility] Work Phone: Do you feel stress - tense, restless, nervous, or anxious, or unable to sleep at night because your mind is troubled all the time - these days [OSQ] Not at all [facility] Work Phone: (I/We) worried wheth er (my/our) food would run out before (I/we) got money to buy more. Never true [facility] Work Phone: Progress note 03-03-2023 Note Date & Type Note Facility 03-03-2023 Note HNO ID: [id number] Author: Berta Almazan APRN.OR SCRUB TECH Service: ? Author Type: Nurse Practitioner Type: Progress Notes Filed: 03/03/2023 9:55 AM Note Text: Davina is a 37 year old who presents for an annual gynecologic exam without complaints. Menses: cycles every 21-25 days and 6 days of flow. Contraception: combined hormonal contraceptives HPV vaccine: N/A Last Pap: 03/04/2021 normal HPV: 03/03/2021 negative History of abnormal pap: No Last mammogram: never Sexually active: Yes Pain with intercourse: No Postcoital bleeding: No OB History T3 L3 SAB0 IAB0 Ectopic0 Multiple0 Live Births3 Belt Worker History LMP: 02/08/2023 (Exact Date), Having periods Age at Menarche: Age at First : Age at Menopause: Belt Worker History Comments: Sexual Activity: Yes; Male; Current partner for 7 years Contraception: Condom, Pill PAST MEDICAL HISTORY Diagnosis Date NEGATIVE MEDICAL HISTORY PAST SURGICAL HISTORY Procedure Laterality Date PAST SURGICAL HISTORY OF WISDOM TEETH FAMILY HISTORY Problem Relation Age of Onset Breast Cancer Mother 64 Cancer Maternal Grandmother skin Heart Maternal Grandmother Arthritis Paternal Grandmother Heart Paternal Grandfather SOCIAL HISTORY Social History Tobacco Use Smoking status: Never Smokeless tobacco: Never Vaping Use Vaping Use: Never used Substance Use Topics Alcohol use: Yes Comment: occasional, NOT WHILE Drug use: Never REVIEW OF SYSTEMS Abdomen: No abdominal pain, nausea, vomiting, diarrhea, or constipation. No bloating, early satiety, indigestion, or increased flatulence. Bladder: No dysuria, gross hematuria, urinary frequency, urinary urgency, or incontinence. Breast: No breast lumps, nipple d/c, overlying skin changes, redness or skin retraction. Allergies and current medication updated:Yes EXAM: BP 118/72 Ht 5' 7 (1.70m) Wt 197 lb (89.4kg) LMP 02/08/2023 BMI 30.85 kg/(m2). GENERAL: pleasant, female in no apparent distress HEENT: Normocephalic, atraumatic, mucus membranes moist, and no lesions NECK: Supple, full range of motion, no adenopathy, and thyroid normal DERMATOLOGY: Normal, without lesions, non-icteric, and non-hirsute BREAST: soft, non-tender, symmetric, no dominant mass, normal nipple-areolar complex, no lymphadenopathy, and no nipple discharge CHEST: Normal inspiratory effort ABDOMEN: soft, non-tender, and no masses PELVIC: external genitalia normal, normal Bartholin's glands, urethra, Duque's glands, no vulvar lesions, no cervical lesions, physiologic discharge present, normal appearing perineal body and perianal region BIMANUAL: uterus normal size, shape and consistency, no adnexal masses, and non-tender RECTOVAGINAL: deferred. NEURO: alert and oriented x3,exam grossly non-focal EXTREMITIES: normal ASSESSMENT/PLAN: 1) Health maintenance: Pap/HPV up to date. Mammogram starting age 40. Nutrition, exercise and routine health maintenance exams reviewed. Calcium/Vitamin D supplementation information provided. 2) Contraception: combined hormonal contraceptives. Contraceptive options reviewed and information provided. 3) STD screening: Declined STD check. 4) Follow up one year or sooner as needed Berta Almazan APRN.BLUE [facility] History of Present illness Narrative 03-03-2023 Berta Almazan APRN.BLUE - 03/03/2023 9:33 AM EDT Note Date & Type Note Facility 03-03-2023 History of Presen t illness Narrative Davina is a 37 year old who presents for an annual gynecologic exam without complaints. Menses: cycles every 21-25 days and 6 days of flow. Contraception: combined hormonal contraceptives HPV vaccine: N/A Last Pap: 03/04/2021 normal HPV: 03/03/2021 negative History of abnormal pap: No Last mammogram: never Sexually active: Yes Pain with intercourse: No Postcoital bleeding: No OB History T3 L3 SAB0 IAB0 Ectopic0 Multiple0 Live Births3 Belt Worker History LMP: 02/08/2023 (Exact Date), Having periods Age at Menarche: Age at First : Age at Menopause: Belt Worker History Comments: Sexual Activity: Yes; Male; Current partner for 7 years Contraception: Condom, Pill PAST MEDICAL HISTORY Diagnosis Date NEGATIVE MEDICAL HISTORY PAST SURGICAL HISTORY Procedure Laterality Date PAST SURGICAL HISTORY OF WISDOM TEETH FAMILY HISTORY Problem Relation Age of Onset Breast Cancer Mother 64 Cancer Maternal Grandmother skin Heart Maternal Grandmother Arthritis Paternal Grandmother Heart Paternal Grandfather SOCIAL HISTORY Social History Tobacco Use Smoking status: Never Smokeless tobacco: Never Vaping Use Vaping Use: Never used Substance Use Topics Alcohol use: Yes Comment: occasional, NOT WHILE Drug use: Never REVIEW OF SYSTEMS Abdomen: No abdominal pain, nausea, vomiting, diarrhea, or constipation. No bloating, early satiety, indigestion, or increased flatulence. Bladder: No dysuria, gross hematuria, urinary frequency, urinary urgency, or incontinence. Breast: No breast lumps, nipple d/c, overlying skin changes, redness or skin retraction. Allergies and current medication updated:Yes EXAM: BP 118/72 Ht 5' 7 (1.70m) Wt 197 lb (89.4kg) LMP 02/08/2023 BMI 30.85 kg/(m^2). GENERAL: pleasant, female in no apparent distress HEENT: Normocephalic, atraumatic, mucus membranes moist, and no lesions NECK: Supple, full range of motion, no adenopathy, and thyroid normal DERMATOLOGY: Normal, without lesions, non-icteric, and non-hirsute BREAST: soft, non-tender, symmetric, no dominant mass, normal nipple-areolar complex, no lymphadenopathy, and no nipple discharge CHEST: Normal inspiratory effort ABDOMEN: soft, non-tender, and no masses PELVIC: external genitalia normal, normal Bartholin's glands, urethra, Duque's glands, no vulvar lesions, no cervical lesions, physiologic discharge present, normal appearing perineal body and perianal region BIMANUAL: uterus normal size, shape and consistency, no adnexal masses, and non-tender RECTOVAGINAL: deferred. NEURO: alert and oriented x3,exam grossly non-focal EXTREMITIES: normal ASSESSMENT/PLAN: 1) Health maintenance: Pap/HPV up to date. Mammogram starting age 40. Nutrition, exercise and routine health maintenance exams reviewed. Calcium/Vitamin D supplementation information provided. 2) Contraception: combined hormonal contraceptives. Contraceptive options reviewed and information provided. 3) STD screening: Declined STD check. 4) Follow up one year or sooner as needed Berta Almazan APRN.OR SCRUB TECH documented in this encounter [facility] History of Past illness Narrative 03-17-2017 Note Date & Type Note Facility documented as of this encounter (statuses as of 05/07/2022) [facility] History of Past illness Narrative 03-17-2017 Note Date & Type Note Facility documented as of this encounter (statuses as of 05/11/2022) [facility] History of Past illness Narrative 03-17-2017 Note Date & Type Note Facility documented as of this encounter (statuses as of 03/03/2023) [facility] Evaluation note Note Date & Type Note Facility documented in this encounter [facility] Summary Purpose Family History No Family History Records Found Advance Directives No Advanced Directives Records Found Additional Source Comments Source Comments (unrecognize d section and content) In the event this informatio n is protected by the Federal Confidentiality of Alcohol and Drug Abuse Patient Records regulations: The Federal rules restrict any use of the information to criminally investigate or prosecute any alcohol or drug abuse patient.[facility] the event this information is protected by the Federal Confidentiality of Alcohol and Drug Abuse Patient Records regulations: The Federal rules restrict any use of the information to criminally investigate or prosecute any alcohol or drug abuse patient.[facility] the event this information is protected by the Federal Confidentiality of Alcohol and Drug Abuse Patient Records regulations: The Federal rules restrict any use of the information to criminally investigate or prosecute any alcohol or drug abuse patient.[facility] Reason for Visit (unrecogniz ed section and content) Reason Onset Date Comments Refill Request 05/09/2022 Reason Comments Yearly Exam Care Teams (unrecognized sec tion and content) Toddler Teacher Relationship Specialty Start Date End Date Ynes Bejarano APRN 11/01/15 INFORMATION SOURCE (unrecogn ized section and content) FOR RECORDS PERTAINING TO PATIENTS WHO ARE OR HAVE BEEN ENROLLED IN A CHEMICAL DEPENDENCY/SUBSTANCEABUSE PROGRAM, SOME INFORMATION MAY BE OMITTED. This clinical summary was aggregated from multiple sources. Caution should be exercised in using it in the provision of clinical care. This summary normalizes information from multiple sources, and as a consequence, information in this document may materially change the coding, format and clinical context of patient data. In addition, data may be omitted in some cases. CLINICAL DECISIONS SHOULD BE BASED ON THE PRIMARY CLINICAL RECORDS. [employer] provides no warranty or guarantee of the accuracy or completeness of information in this document.
--- NOTE | 2023-09-08 11:35 | RAD_ITS ---
STUDY: X-RAY - LEFT ANKLE REASON FOR EXAM: Female, 38 years old. Post reduction TECHNIQUE: 3 view(s) of the ankle. COMPARISON: Comparison is made with prior study done earlier today. FINDINGS: Satisfactory reduction of the medial malleolar fracture as well as a fracture through the distal lateral malleolus. Normal medial and lateral malleoli. Normal tibiotalar articulation and ankle mortise. Normal visualized talus and calcaneus. The visualized subtalar, talonavicular, calcaneocuboid and tarsal articulations are normal. Soft tissue swelling. RAD/Ankle min 3 Views IMPRESSION: Satisfactory reduction of the medial malleolar fracture as well as the distal lateral malleolar fracture. Soft tissue swelling. Electronically Signed: Ronen Armendariz MD at 11:55 EST ,
--- NOTE | 2023-09-08 12:00 | CT_ITS ---
CT LEFT LOWER EXTREMITY WITH 3-D IMAGING CLINICAL INDICATION: trauma TECHNIQUE: Axial CT images of the LEFT lower extremity was performed without IV contrast material. Coronal and sagittal reformats were provided. RADIATION DOSAGE (If Supplied By Facility): CTDIvol = ( 15.35 ) mGy, DLP = ( 449.71 ) mGycm COMPARISON: Prior study dated: Radiograph done earlier in the day. FINDINGS: Bones: Nondisplaced avulsion fracture of the medial malleolus. Oblique fracture of the distal lateral malleolus. Persistent asymmetry of the ankle mortise. Tiny avulsion fracture of the posterior malleolus of the distal tibia. Soft Tissues: Soft tissue swelling. CT/Extremity Lower without Contra IMPRESSION: Nondisplaced avulsion fracture of the medial malleolus as well as oblique fracture of the lateral malleolus with overlying soft tissue swelling. Avulsion fracture of the posterior malleolus of the distal tibia. Persistent asymmetry of the ankle mortise. Electronically Signed: Ronen Armendariz MD at 12:36 EST ,
--- NOTE | 2023-09-08 12:02 | CON.PCM_ITS ---
Assessment & Plan Assessment/Plan (1) Displaced trimalleolar fracture of left ankle: QUALIFIERS: Encounter type: initial encounter Fracture type: closed Qualified Code(s): S82.852A - Displaced trimalleolar fracture of left lower leg, initial encounter for closed fracture PLAN: Patient was examined and evaluated. All findings were discussed with the patient. All questions were answered to the patient satisfaction. Patient was status post conscious sedation closed reduction of the left lower extremity ankle fracture. Posterior splint was donned by emergency department. Patient had a CT scan following the closed reduction left ankle that shows an impression of a nondisplaced avulsion fracture of the medial malleolus as well as an oblique fracture of the lateral malleolus with overlying soft tissue swelling. Avulsion fracture of the posterior malleolus of the distal tibia. Educated the patient that she will be nonweightbearing with crutches on the posterior splint and will follow-up in private office for surgical consultation as well as for surgical planning. Will plan for open reduction internal fixation of the bimalleolar ankle fracture with syndesmotic repair to left lower extremity. Educated the patient that it will take approximately 4 to 6 weeks to get her weightbearing as tolerated back in athletic shoes/boots with a [employer]AY[employer] brace. Patient showed understanding of this. 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 Everything that was explained to the patient she showed understanding of. She was discharged from the emergency department with crutches and a posterior splint as well as pain medication will follow-up with Dr. Brower in private office for surgical planning. (2) Left ankle pain: QUALIFIERS: Chronicity: acute Qualified Code(s): M25.572 - Pain in left ankle and joints of left foot (3) Fall: QUALIFIERS: Encounter type: initial encounter Qualified Code(s): W19.XXXA - Unspecified fall, initial encounter HPI Consult Data Date of Consult: 09/08/23 HPI Narrative Reason for Consultation: Left lower extremity ankle fracture HPI Narrative: ALVIN HURST, is a 38 F who presents to the emergency department at [facility] with a chief complaint of left ankle injury. Patient states that she slipped on ice [place] this morning around 7 AM. She presented to urgent care who did left ankle x-rays and told the patient she broke/fractured her left ankle. She was placed in a boot and referred to the emergency room for evaluation and workup. Patient has no real history of broken bones in the past. 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 Radiographs show bimalleolar fracture with slight lateralization of the talus with a posterior malleoli bolus intact. Patient was ultimately closed reduced in the emergency department and placed in a posterior splint with CT scan to follow. She denies any constitutional symptoms. No other pedal complaints at this time. [facility] Home Medications vits,calcium no.78-iron fumarate-folic acid 29 mg-1 mg tablet (Pr enatabs FA) 1 tab PO DAILY 09/04/14 [History Last Taken 09/25/17 one] acetaminophen 500 mg tablet 1,000 mg (2 x 500 mg) PO Q8H PRN PRN MILD PAIN (1- 3/10)/Temp>99.6F 09/29/17 [Rx Last Taken Unknown] naproxen 250 mg tablet 250 - 500 mg (1 - 2 x 250 mg) PO Q8H PRN PRN Mild Pain (1-3/10) 09/29/17 [Rx Last Taken Unknown] sennosides 8.6 mg-docusate sodium 50 mg tablet (Stool Softener-Stimulant Laxative) 1 - 2 tab PO DAILY PRN PRN Constipation 09/29/17 [Rx Last Taken Unknown] oxycodone-acetaminophen 5 mg-325 mg tablet 1 tab PO Q6H PRN PRN pain 5 days #20 TABLETS 09/08/23 [Rx Last Taken Unknown] Allergy/AdvReac Type Severity Reaction Status Date / Time No Known Allergies Allergy Verified 09/08/23 10:09 Social History Smoking Status: Never smoker Physical Exam Narrative Neurovascular status is intact. Patient is status post closed reduction to left lower extremity with conscious sedation. Light touch is intact. Nonpitting edema appreciated to the distal and proximal posterior splint. Active and passive range of motion of lesser digits is pain-free. There is mild palpatory tenderness appreciated to the distal fibula and medial malleolus over the posterior splint. No pain with calf compression. Const alert, oriented x3, no apparent distress and well nourished Imagaing Radiology Impression Ankle X-Ray 09/08/23 11:35 IMPRESSION: Satisfactory reduction of the medial malleolar fracture as well as the distal lateral malleolar fracture. Soft tissue swelling. Electronically Signed: Ronen Armendariz MD at 11:55 EST ,
== END 2023-09-08 12:44 | disposition home or self-care (01) ==
PROVIDERS: Emergency Provider Emergency Medicine; Visit Provider Emergency Medicine
DX: S82.852A Displaced trimalleolar fracture of left lower leg, initial encounter for closed fracture (principal); W00.0XXA Fall on same level due to ice and snow, initial encounter
CPT/HCPCS: 27810; 73610; 73700; 96374; 96375; 96376; 99152; 99153; 99284; J7030; A4216; J2405

== ENCOUNTER → 2023-09-16 | Outpatient (CLI) | payer MEDICAID, SELFPAY ==
--- OUTSIDE RECORDS SUMMARY | 2023-09-16 10:57 | XMS RPT_ITS | CCD ---
Author Name Unknown Address [address] [place] [address] Organization [facility] Care Team Providers Care Paving Bed Maker Name Role Phone Pcp, No Unavailable Unavailable Pcp, No Unavailable Unavailable ELIZABETH PRESCOTT Referring Unavailable BERTA BLACKWOOD Attending Unavailable Medications Completed/Discontinued Medications Medication Drug Class(es) Dates Sig (Normalized) Sig (Original) Ethinyl Estradiol / norgestimate (4 sources) Progestin, Estrogen Start: 03-03-2023 take 1 tablet by mouth once daily norgestimate 0.25 mg-ethinyl estradiol 35 mcg (SPRINTEC) 0.25-35 mg-mcg per tablet Take 1 tablet by mouth once daily. 84 tablet 4 03/03/2023 Active Problems Problem Classification Problem Date Documented Date Episodic/Chronic Contraceptive and procreative management (1 source) Oral contraception; Translations: [Encounter for surveillance of contraceptive pills] 03-03-2023 Episodic Other injuries and conditions due to external causes (1 source) Unspecified injury of left ankle, initial encounter; Translations: [Left ankle injury, initial encounter] Onset: 09-08-2023 Episodic Results Test Name Value Interpretation Reference Range Facil ity Vital Signs Date Time Vital Sign Value Performing Clinician Martin rizo 03-03-2023 09:36-0400 Body height 170.2 cm Berta Norah DUST HANDLER.BOILER RELINER Work Phone: [facility] 03-03-2023 09:36-0400 Body weight 89.36 kg Berta Norah DUST HANDLER.BOILER RELINER Work Phone: [facility] 03-03-2023 09:36-0400 Diastolic blood pressure 72 mm[Hg] Berta Washington DUST HANDLER.BOILER RELINER Work Phone: [facility] 07-19-2023 09:36-0400 Systolic blood pressure 118 mm[Hg] Berta Acostaf DUST HANDLER.BLUE Work Phone: [facility] Encounters Encounter Date Encounter Type Care Provider Facility Start: 09-08-2023 End: 09-08-2023 ambulatory ELIZABETH PRESCOTT Facility:[facility] Start: 03-03-2023 End: 03-03-2023 ambulatory BERTA BLACKWOOD Facility:[facility] Start: 03-03-2023 End: 03-03-2023 Patient encounter procedure Berta Acostaf DUST HANDLER.BOILER RELINER Work Phone: OB/Gynecology Plan of Treatment Date Care Activity Detail Author Start: 07-02-2027 Urine microalbumin profile DTA P,TDAP,TD (4 - Td or Tdap) [facility] Start: 02-27-2026 HPV TESTING HPV TESTING [facility] Start: 02-27-2026 PAP TESTING PAP TESTING [facility] Start: 04-16-2023 Influenza vaccination INFLUENZA (#1) [facility] Start: 08-16-2022 DEPRESSION ASSESSMENT DEPRESSION ASS ESSMENT [facility] Start: 04-16-2022 Influenza vaccination INFLUENZA (#1) [facility] Start: 07-16-2021 COVID-19 VACCINE (3 - Booster for Pfizer series) COVID-19 VACCINE (3 - Booster for Pfizer series) [facility] Start: 07-16-2021 COVID-19 VACCINE (3 - Pfizer series) COVID-19 VACCINE (3 - Pfizer series) [facility] Start: 2003 HEPATITIS C SCREENING HEPATITIS C [facility] Start: 1997 Adult depression [facility] assessment DEPRESSION SCREENING [facility] Start: 1985 HEPATITIS B (1 of 3 - 3-dose series) HEPATITIS B (1 of 3 - 3-dose series) [facility] Immunizations Immunization Date Immunization Notes Care Provider Niesha sullivan 07-02-2017 tetanus toxoid, redu dean diphtheria toxoid, and acellular pertussis vaccine, adsorbed Berta Blackwood APRN.CNP Work Phone: [facility] 05-12-2017 influenza, injectabl e, quadrivalent, contains preservative Berta Blackwood APRN.LBUE Work Phone: [facility] 01-09-2016 tetanus toxoid, redu dean diphtheria toxoid, and acellular pertussis vaccine, adsorbed Berta Norah DUST HANDLER.BOILER RELINER Work Phone: [facility] 07-05-2014 tetanus toxoid, redu dean diphtheria toxoid, and acellular pertussis vaccine, adsorbed Berta Norah DUST HANDLER.BOILER RELINER Work Phone: [facility] Work Phone: 06-06-2014 influenza, seasonal, injectable Berta Norah DUST HANDLER.BOILER RELINER Work Phone: [facility] Work Phone: 06-03-2009 influenza virus vaccine, unspecified formulation Berta Washington DUST HANDLER.BOILER RELINER Work Phone: [facility] Work Phone: Payers Date Payer Category Payer Medicaid [id number] 2017 Medicaid [id number] Social History Date Type Detail Facility Start: 05-18-2011 Tobacco smoking stat us TNIS Never smoked tobacco [facility] Start: 05-18-2011 Tobacco use and exposure Smoke less tobacco non-user [facility] Start: 07-20-2021 End: 03-03-2023 Alcohol intake Current drinker of alcohol (finding) [facility] Start: 02-26-2014 History SDOH Alcohol Comment occasional, NOT WHILE [facility] Start: 01-15-2020 History SDOH Social Connections Phone 4 [facility] Start: 01-15-2020 History SDOH Social Connections Get Together 2 [facility] Start: 01-15-2020 History SDOH Social Connections [facility] 3 [facility] Start: 01-15-2020 History SDOH Social Connections Membership 1 [facility] Start: 01-15-2020 History SDOH Financial 5 [facility] Start: 01-15-2020 Education 17 [facility] Start: 1985 Sex Assigned At Not on file C [facility] Start: 01-15-2020 End: 03-03-2023 [facility] Work Phone: Start: 01-15-2020 End: 03-03-2023 Social connection and isolation panel [facility] Work Phone: Do you belong to any clubs or organizations such as gnosticism groups, unions, fraternal or athletic groups, or school groups? Yes [facility] Work Phone: Are you now , , , , never or living with a partner? [facility] Work Phone: How hard is it for y ou to pay for the very basics like food, housing, medical care, and heating Not hard at all [facility] Work Phone: Do you feel stress - tense, restless, nervous, or anxious, or unable to sleep at night because your mind is troubled all the time - these days [OSQ] Not at all [facility] Work Phone: (I/We) worried wheth er (my/our) food would run out before (I/we) got money to buy more. Never true [facility] Work Phone: Progress note 09-08-2023 Note Date & Type Note Facility 09-08-2023 Note HNO ID: [id number] Author: TASHIA MAK RT(R) Service: Radiology Author Type: Technologist Type: Progress Notes Filed: 09/08/2023 09:37 Note Text: Radiology Service Progress Note PATIENT NAME: Davina Bishop DATE OF SERVICE: September 08, 2023 TIME: 9:27 AM PATIENT IDENTITY VERIFICATION COMPLETED USING TWO (2) IDENTIFIERS: Name and Date of confirmed by patient verbally. FALL SCREENING: Has the patient had 2 falls in the last year or 1 fall with injury or currently using an Ambulatory Assistive Device (Walker, Cane, Wheelchair, Crutches, etc.)? No PATIENT GENDER DATA: Female. status: : No status: NO. PATIENT RELEVANT IMPLANT DATA REVIEWED: Yes RADIOLOGY DEPARTMENT: General X-ray: Exam(s) Completed: Lower Extremity X-Ray(s): Ankle, Left PERIPHERAL IV DATA: Not applicable SIGNED BY: RT Carla(R) September 08, 2023 9:27 AM [facility] Progress note 09-08-2023 Note Date & Type Note Facility 09-08-2023 Note HNO ID: [id number] Author: ELIZABETH PRESCOTT APRN.BOILER RELINER Service: ? Author Type: Nurse Practitioner Type: Progress Notes Filed: 09/08/2023 11:03 Note Text: Subjective HPI Davina Bishop is a 38 year old female who presents with left ankle pain. She slipped and fell on the ice this morning about 2 hours ago. She rates her pain 7/10 at rest. She states it is worse with movement or weight bearing. She took Ibuprofen at home. She denies pain or injury to her foot or knee. Review of Systems Constitutional: Negative for chills and fever. Musculoskeletal: Positive for falls and joint pain. Skin: Negative for itching and rash. BP 132/84 Pulse 96 Temp 36.9 ?C (98.4 ?F) Resp 16 Wt 89.4 kg (197 lb) LMP 02/08/2023 (Exact Date) SpO2 99% BMI 30.85 kg/m? PAST MEDICAL HISTORY Diagnosis Date NEGATIVE MEDICAL HISTORY PAST SURGICAL HISTORY Procedure Laterality Date PAST SURGICAL HISTORY OF WISDOM TEETH ALLERGIES Patient has no known allergies. MEDICATIONS norgestimate 0.25 mg-ethinyl estradiol 35 mcg (SPRINTEC) 0.25-35 mg-mcg per tablet Take 1 tablet by mouth once daily. FAMILY HISTORY Problem Relation Age of Onset Breast Cancer Mother 64 Cancer Maternal Grandmother skin Heart Maternal Grandmother Arthritis Paternal Grandmother Heart Paternal Grandfather Social History Tobacco Use Smoking status: Never Smokeless tobacco: Never Vaping Use Vaping Use: Never used Substance Use Topics Alcohol use: Yes Comment: occasional, NOT WHILE Drug use: Never Objective Physical Exam Vitals and nursing note reviewed. Constitutional: General: She is not in acute distress. Appearance: Normal appearance. Musculoskeletal: General: Swelling, tenderness and signs of injury present. Left lower leg: Edema present. Left ankle: Swelling and ecchymosis present. Tenderness present over the medial malleolus. Decreased range of motion. Normal pulse. Left Achilles Tendon: Normal. No tenderness. Skin: General: Skin is warm and dry. Capillary Refill: Capillary refill takes less than 2 seconds. Findings: Bruising present. No erythema or rash. Neurological: Mental Status: She is alert. ASSESSMENT/PLAN: 1. Left ankle injury, initial encounter - ICD9: 959.7, ICD10: S99.912A (primary diagnosis) - XR ANKLE GENERAL 3V AP/LAT/OBL LEFT FINDINGS: Acute, transverse, mildly comminuted fracture of the medial malleolus with lateral displacement of the distal fracture fragment. Acute, oblique fracture of the lateral malleolus with half shaft width lateral displacement of the distal fracture fragment and with overlapping of the fracture fragments by approximately 2.5 cm. Lateral subluxation of the talus relative to the distal tibia with associated widening of the medial ankle mortise. IMPRESSION: Acute bimalleolar fracture as described. Lateral subluxation of the talus relative to the distal tibia with associated widening of the medial ankle mortise. [employer] Bi Architect: ELIDIA Transcribe Date/Time: Sep 08 2023 9:56A Dictated by : CATERINA RECINOS MD 2. Closed fracture of left ankle, initial encounter - ICD9: 824.8, ICD10: S82.892A - CONSULT PANEL TO ORTHOPAEDICS - Patient placed in Aircast boot and referred to ER for further evaluation and treatment. [facility] orthopedic provider not available today. Options for ER treatment given to patient, including contacting ortho pulmonary specialist at [facility]; she will go to [place] ED. Copy of XRAY sent with patient. Report sent via ER passport. Elizabeth Prescott APRN.BLUE [facility] Progress note 03-03-2023 Note Date & Type Note Facility 03-03-2023 Note HNO ID: [id number] Author: Berta Blackwood APRN.BLUE Service: ? Author Type: Nurse Practitioner Type: [...] L3 SAB0 IAB0 Ectopic0 Multiple0 Live Births3 Apron Trimmer History LMP: 02/08/2023 (Exact Date), Having periods Age at Menarche: Age at First : Age at Menopause: Apron Trimmer History Comments: Sexual Activity: Yes; Male; Current [...] external genitalia normal, normal Bartholin's glands, urethra, Hilbert's glands, no vulvar lesions, no cervical lesions, [...] one year or sooner as needed Berta Blackwood APRN.BLUE [facility] History of Present illness Narrative 03-03-2023 Berta Blackwood APRN.BLUE - 03/03/2023 9:33 AM EDT Note [...] L3 SAB0 IAB0 Ectopic0 Multiple0 Live Births3 Apron Trimmer History LMP: 02/08/2023 (Exact Date), Having periods Age at Menarche: Age at First : Age at Menopause: Apron Trimmer History Comments: Sexual Activity: Yes; Male; Current [...] external genitalia normal, normal Bartholin's glands, urethra, Hilbert's glands, no vulvar lesions, no cervical lesions, [...] one year or sooner as needed Berta Blackwood APRN.BLUE documented in this encounter [facility] History of Past illness Narrative 03-17-2017 Note Date & Type Note Facility documented as of this encounter (statuses as of 05/07/2022) [facility] History of Past illness Narrative 03-17-2017 Note Date & Type Note Facility documented as of this encounter (statuses as of 05/11/2022) [facility] History of Past illness Narrative 03-17-2017 Note Date & Type Note Facility documented as of this encounter (statuses as of 03/03/2023) [facility] Evaluation note Note Date & Type Note Facility documented in this encounter [facility] Summary Purpose Family History No Family History [...] or prosecute any alcohol or drug abuse patient.[facility] the event this information is protected by the Federal Confidentiality of Alcohol and Drug Abuse Patient Records regulations: The Federal rules restrict any use of the information to criminally investigate or prosecute any alcohol or drug abuse patient.[facility] the event this information is protected by the Federal Confidentiality of Alcohol and Drug Abuse Patient Records regulations: The Federal rules restrict any use of the information to criminally investigate or prosecute any alcohol or drug abuse patient.[facility] Reason for Visit (unrecogniz ed section and content) Reason Onset Date Comments Refill Request 05/09/2022 Reason Comments Yearly Exam Care Teams (unrecognized sec tion and content) Paving Bed Maker Relationship Specialty Start Date End Date Ynes [...] BE BASED ON THE PRIMARY CLINICAL RECORDS. [facility] [employer] [facility]. provides no warranty or guarantee of the accuracy or completeness of information in this document.
[2023-09-16 12:09] LABS: Absolute Lymphocyte Count 1.89 X10^3/uL (0.83-4.51); Absolute Neutrophil Count 5.4 X10^3/uL (2.0-7.7); Basophil# 0.07 X10^3/uL; Basophil% 0.8 % (0-1); Eosinophil# 0.31 X10^3/uL; Eosinophils% 3.8 % (0-5); Hematocrit 39.2 % (37-47); Hemoglobin 12.8 g/dL (12.0-15.0); Lymphocyte # 1.89 X10^3/ul (0.83-4.51); Lymphocyte % 22.9 % (19-41); Mean Corp Hgb Conc 32.7 g/dL (32-36); Mean Corpuscular Hgb 28.7 pg (27.0-32.0); Mean Corpuscular Volume 87.9 fL (81-99); Monocyte# 0.51 X10^3/uL; Monocyte% 6.2 % (0-10); NRBC Flagged by Analyzer 0 % (0-5); Neutrophil # 5.43 X10^3/uL (2.7-7.7); Neutrophil % 65.8 % (47-70); Platelet Count 350 K/mm3 (150-450); RBC Distribution Width CV 12.5 % (11.6-14.6); RBC Distribution Width SD 39.8 fl (35.1-43.9); Red Blood Count 4.46 M/mm3 (4.2-5.4); White Blood Count 8.3 K/mm3 (4.4-11.0)
[2023-09-16 12:35] LABS: ALB/GLOB Ratio 0.7 RATIO (0.9-2.4); AST(SGOT) 18 U/L (15-37); Alanine Aminotransfer ALT/SGPT 31 U/L (13-56); Albumin, Serum 3.2 g/dL (3.2-5.0); Alkaline Phosphatase 76 U/L (45-117); Anion Gap 3 (5-15); BUN 20 mg/dL (7-18); BUN/Creat Ratio 25.4 RATIO (10-20); Calcium,Total 9.3 mg/dL (8.5-10.1); Chloride 103 mmol/L (98-107); Cholesterol 204 mg/dL (200); Creatinine, Serum 0.79 mg/dL (0.55-1.02); EST Glomerular Filtration Rate 87 mL/min (>60); Est Glom Filt Rate - Afr Amer 105 mL/min (>60); Globulin 4.9 g/dL (2.2-4.2); Glucose 83 mg/dL (74-106); High Density Lipoprotein 56 mg/dL; Potassium 4.5 mmol/L (3.5-5.1); Protein, Total 8.1 g/dL (6.4-8.2); Sodium Level 133 mmol/L (136-145); Triglycerides 164 mg/dL; Very Low Density Lipoprotein 33 mg/dL (5-40)
[2023-09-16 12:49] LABS: Hemoglobin A1c 5.1 % (3.8-5.6)
[2023-09-20 11:18] LABS: Magnesium 2.2 mg/dL (1.6-2.6)
== END | disposition home or self-care (01) ==
LOC: BIMLAB 09:09
PROVIDERS: Podiatrist Foot & Ankle Surgery; PCP Nurse Practitioner; Referring Provider Nurse Practitioner; Visit Provider Nurse Practitioner
DX: Z00.00 Encounter for general adult medical examination without abnormal findings (principal)
CPT/HCPCS: 36415; 80053; 80061; 83036; 83735; 85025

== ENCOUNTER 2023-09-24 09:03 | Day surgery (SDC) | payer MEDICAID, SELFPAY ==
[2023-09-21 10:46] LABS: COTININE Drug Screen Negative (<200 ng/mL)
[2023-09-21 11:19] LABS: Vitamin D,25 Hydroxy 24.2 ng/mL
[2023-09-24] VITALS (8 sets, daily range): BP systolic 123–144; BP diastolic 83–97; PULSE 77–97; RESP 14–18; TEMP 36.2–36.4; O2SAT 96–100; BMI 31.9
--- OUTSIDE RECORDS SUMMARY | 2023-09-24 09:17 | XMS RPT_ITS | CCD ---
Author Name Unknown Address [address] [place] [address] Organization [facility] Care Team Providers Care Fitness Instructor Name Role Phone Pcp, No Unavailable Unavailable [...] 09:36-0400 Body height 170.2 cm Berta Norah FUNCTIONAL CONSULTANT.PHOTOGRAPHIC LITHOGRAPHER Work Phone: [facility] 03-03-2023 09:36-0400 Body weight 89.36 kg Berta Norah FUNCTIONAL CONSULTANT.PHOTOGRAPHIC LITHOGRAPHER Work Phone: [facility] 03-03-2023 09:36-0400 Diastolic blood pressure 72 mm[Hg] Berta Manakin Sabot FUNCTIONAL CONSULTANT.PHOTOGRAPHIC LITHOGRAPHER Work Phone: [facility] 07-19-2023 09:36-0400 Systolic blood pressure 118 mm[Hg] Berta Acostaf FUNCTIONAL CONSULTANT.BLUE Work Phone: [facility] Encounters Encounter Date Encounter Type Care Provider Facility Start: 09-08-2023 End: 09-08-2023 ambulatory ELIZABETH PRESCOTT Facility:[facility] Start: 03-03-2023 End: 03-03-2023 ambulatory BERTA BLACKWOOD Facility:[facility] Start: 03-03-2023 End: 03-03-2023 Patient encounter procedure Berta Acostaf FUNCTIONAL CONSULTANT.PHOTOGRAPHIC LITHOGRAPHER Work Phone: OB/Gynecology Plan of Treatment Date Care Activity Detail Author Start: 07-02-2027 Urine microalbumin profile DTA P,TDAP,TD (4 - Td or Tdap) [facility] Start: 02-27-2026 HPV TESTING HPV TESTING [facility] Start: 02-27-2026 PAP TESTING PAP TESTING [facility] Start: 04-16-2023 Influenza vaccination INFLUENZA (#1) [facility] Start: 08-16-2022 DEPRESSION ASSESSMENT DEPRESSION ASS ESSMENT [facility] Start: 04-16-2022 Influenza vaccination INFLUENZA (#1) [facility] Start: 07-16-2021 COVID-19 VACCINE (3 - Booster for Pfizer series) COVID-19 VACCINE (3 - Booster for Pfizer series) [facility] Start: 07-16-2021 COVID-19 VACCINE (3 - Pfizer series) COVID-19 VACCINE (3 - Pfizer series) [facility] Start: 2003 HEPATITIS [facility] Start: 1997 Adult depression [facility] assessment DEPRESSION SCREENING [facility] Start: 1985 HEPATITIS B (1 of 3 - 3-dose series) HEPATITIS B (1 of 3 - 3-dose series) [facility] Immunizations Immunization Date Immunization Notes Care Provider Niesha sullivan 07-02-2017 tetanus toxoid, redu dean diphtheria toxoid, and acellular pertussis vaccine, adsorbed Berta Blackwood APRN.CNP Work Phone: [facility] 05-12-2017 influenza, injectabl e, quadrivalent, contains preservative Berta Blackwood APRN.BLUE Work Phone: [facility] 01-09-2016 tetanus toxoid, redu dean diphtheria toxoid, and acellular pertussis vaccine, adsorbed Berta Norah FUNCTIONAL CONSULTANT.PHOTOGRAPHIC LITHOGRAPHER Work Phone: [facility] 07-05-2014 tetanus toxoid, redu dean diphtheria toxoid, and acellular pertussis vaccine, adsorbed Berta Norah FUNCTIONAL CONSULTANT.PHOTOGRAPHIC LITHOGRAPHER Work Phone: [facility] Work Phone: 06-06-2014 influenza, seasonal, injectable Berta Norah FUNCTIONAL CONSULTANT.PHOTOGRAPHIC LITHOGRAPHER Work Phone: [facility] Work Phone: 06-03-2009 influenza virus vaccine, unspecified formulation Berta Manakin Sabot FUNCTIONAL CONSULTANT.PHOTOGRAPHIC LITHOGRAPHER Work Phone: [facility] Work Phone: Payers Date Payer Category Payer Medicaid [id number] 2017 Medicaid [id number] Social History Date Type Detail Facility Start: 05-18-2011 Tobacco smoking stat us TNIS Never smoked tobacco [facility] Start: 05-18-2011 Tobacco use and exposure Smoke less tobacco non-user [facility] Start: 07-20-2021 End: 03-03-2023 Alcohol intake Current drinker of alcohol (finding) [facility] Start: 02-26-2014 History SDOH Alcohol Comment occasional, NOT WHILE [facility] Start: 01-15-2020 History SDOH Social Connections Phone 4 [facility] Start: 01-15-2020 History SDOH Social Connections Get Together 2 [facility] Start: 01-15-2020 History SDOH Social Connections Holiness 3 [facility] Start: 01-15-2020 History SDOH Social Connections Membership 1 [facility] Start: 01-15-2020 History SDOH Financial 5 [facility] Start: 01-15-2020 Education 17 [facility] Start: 1985 Sex Assigned At Not on file [facility] Start: 01-15-2020 End: 03-03-2023 History of Social function [facility] Work Phone: Start: 01-15-2020 End: 03-03-2023 Social connection and isolation panel [facility] Work Phone: Do you belong to any clubs or organizations such as advent groups, unions, fraternal or athletic groups, or school groups? Yes [facility] Work Phone: Are you now , , , , never or living with a partner? [facility] Work Phone: How hard is it for y ou to pay for the very basics like food, housing, medical care, and heating Not hard at all [facility] Work Phone: Do you feel stress - tense, restless, nervous, or anxious, or unable to sleep at night because your mind is troubled all the time - these days [OSQ] Not at all [facility] Work Phone: (I/We) worried wheth er (my/our) food would run out before (I/we) got money to buy more. Never true [facility] Work Phone: Progress note 09-08-2023 Note Date & Type Note Facility 09-08-2023 Note HNO ID: [id number] Author: TASHIA MAK RT(R) Service: Radiology Author [...] RT Carla(R) September 08, 2023 9:27 AM [facility] Progress note 09-08-2023 Note Date & Type Note Facility 09-08-2023 Note HNO ID: [id number] Author: ELIZABETH PRESCOTT APRN.PHOTOGRAPHIC LITHOGRAPHER Service: ? Author Type: Nurse Practitioner Type: [...] associated widening of the medial ankle mortise. Machine Helper: ELIDIA Transcribe Date/Time: Sep 08 2023 9:56A Dictated by : CATERINA RECINOS MD 2. Closed fracture of left ankle, initial encounter - ICD9: 824.8, ICD10: S82.892A - CONSULT PANEL TO ORTHOPAEDICS - Patient placed in Aircast boot and referred to ER for further evaluation and treatment. [facility] orthopedic provider not available today. Options for ER treatment given to patient, including contacting ortho supervisor electronic testing at [facility]; she will go to [place] ED. Copy of XRAY sent with patient. Report sent via ER passport. Elizabeth Prescott APRN.BLUE [facility] Progress note 03-03-2023 Note Date & Type Note Facility 03-03-2023 Note HNO ID: [id number] Author: Berta Blackwood APRN.BLUE Service: ? Author [...] L3 SAB0 IAB0 Ectopic0 Multiple0 Live Births3 Sailing Officer History LMP: 02/08/2023 (Exact Date), Having periods Age at Menarche: Age at First : Age at Menopause: Sailing Officer History Comments: Sexual Activity: Yes; Male; Current [...] external genitalia normal, normal Bartholin's glands, urethra, Section's glands, no vulvar lesions, no cervical lesions, [...] or sooner as needed Berta Blackwood APRN.BLUE [facility] History of Present illness Narrative [...] L3 SAB0 IAB0 Ectopic0 Multiple0 Live Births3 Sailing Officer History LMP: 02/08/2023 (Exact Date), Having periods Age at Menarche: Age at First : Age at Menopause: Sailing Officer History Comments: Sexual Activity: Yes; Male; Current [...] external genitalia normal, normal Bartholin's glands, urethra, Section's glands, no vulvar lesions, no cervical lesions, [...] Berta Blackwood APRN.BLUE documented in this encounter [facility] History of Past illness Narrative 03-17-2017 Note Date & Type Note Facility documented as of this encounter (statuses as of 05/07/2022) [facility] History of Past illness Narrative 03-17-2017 Note Date & Type Note Facility documented as of this encounter (statuses as of 05/11/2022) [facility] History of Past illness Narrative 03-17-2017 Note Date & Type Note Facility documented as of this encounter (statuses as of 03/03/2023) [facility] Evaluation note Note Date & Type Note Facility documented in this encounter [facility] Summary Purpose Family History No Family History [...] or prosecute any alcohol or drug abuse patient.[facility] the event this information is protected by the Federal Confidentiality of Alcohol and Drug Abuse Patient Records regulations: The Federal rules restrict any use of the information to criminally investigate or prosecute any alcohol or drug abuse patient.[facility] the event this information is protected by the Federal Confidentiality of Alcohol and Drug Abuse Patient Records regulations: The Federal rules restrict any use of the information to criminally investigate or prosecute any alcohol or drug abuse patient.[facility] Reason for Visit (unrecogniz ed section and content) Reason Onset Date Comments Refill Request 05/09/2022 Reason Comments Yearly Exam Care Teams (unrecognized sec tion and content) Fitness Instructor Relationship Specialty Start Date End Date Ynes [...] BE BASED ON THE PRIMARY CLINICAL RECORDS. [facility] [employer] [facility]. provides no warranty or guarantee of the accuracy or completeness of information in this document.
[2023-09-24 09:40] LABS: Internal QC Validated? YES +Cl - CLEAR BKGD; Pregnancy, Urine Negative Negative
[2023-09-24] MEDS: Lactated Ringers 1,000 ML 15 ML IV (09:43)
[2023-09-24] MEDS: Acetaminophen 500 MG Tablet 1000 MG PO (09:44)
[2023-09-24] MEDS: Gabapentin 600 MG Tablet PO (09:44)
[2023-09-24] MEDS: Magnesium 1 GM over 15 mins IV (09:44)
[2023-09-24 10:15] LABS: Bedside Glucose 91 mg/dL (74-106)
--- NOTE | 2023-09-24 11:21 | PCM.OPRPT ---
Problems Associated Problem List Diagnoses (1) Displaced bimalleolar fracture of left lower leg, initial encounter for closed fracture: (2) Pain in left ankle and joints of left foot: (3) Cause of injury, accidental fall: (4) Subluxation of left ankle joint: Report of Operation Date of Procedure: 09/24/23 Pre-Operative Diagnosis: 1. Displaced bimalleolar ankle fracture, left lower extremity 2. Syndesmotic injury with subluxation, left lower extremity 3. Pain, left ankle Post-Operative Diagnosis: 1. Displaced bimalleolar ankle fracture, left lower extremity 2. Syndesmotic injury with subluxation, left lower extremity 3. Pain, left ankle Surgery/Procedure Performed:: 1. Open reduction internal fixation bimalleolar ankle fracture, left lower extremity 2. Syndesmotic repair, left lower extremity 3. Left lower extremity stress views 4. Application of posterior splint, left lower extremity Description of Surgical Findings:: 1. Good anatomic reduction of the distal fibular fracture and medial malleolus fracture, left lower extremity 2. Stressing the syndesmosis showed increase in tib-fib overlap during stress views. Went forward to repair the syndesmosis with tight rope by Arthrex. Surgeon: Omid Brower counterintelligence analyst: Kin Dougherty Type of Anesthesia: General/Regional Anesthesiologist: Bryan Khoury Special Medications: Per anesthesia Specimen's removed: None Drains: None Estimated Blood Loss (mL): 50 mL Fluids Replaced: Per anesthesia Description of Procedure: Indications For Operation: Mrs. Bishop is a 38-year-old female who was admitted to [facility] for left lower extremity open reduction internal fixation of the left ankle fracture. Patient unfortunately slipped at her house due to bad weather/ice rolling her ankle underneath her body and causing at the fracture. She was ultimately seen at a urgent care who instructed the patient to present to [facility] emergency department for evaluation and treatment. Being the summer sessions director on-call I saw Mrs. Bishop in the emergency department after her closed reduction of left lower extremity dislocated ankle fracture. She had adequate anatomic reduction by the ER staff. Following discharge from the emergency department she had CT scan that showed evidence of a trimalleolar ankle fracture with a small avulsion off the posterior malleolus which did not need repair. Patient was ultimately seen in my private office for surgical consultation and evaluation of medical clearance. She went through multiple AO splints for edema control. Due to displacement of the medial and lateral malleolus it had deemed necessary at this time to get the patient into the operating room to perform the above procedure to reconstruct her her ankle back to anatomical position to help decrease her pain to the left lower extremity. The nature of the problem, anticipated procedures, postop recovery/convalences and risk/complications include but not limited to infection, wound healing complications, digital amputation, hypertrophic scarring, numbness, tingling, chronic pain, CRPS, over and under correction, recurrence of deformity, DVT and or PE and the need for further surgery have been discussed in great detail with the patient. All questions have been answered to the patient's satisfaction. There are no guarantees given as to the outcome of the procedure. Description of Procedure: Under mild sedation, the patient was brought into the operating room and placed on the operating table in supine position. Once the patient was under general anesthesia with laryngeal mask airway, the left lower extremity was blocked by anesthesia for popliteal block please see anesthesia note for further detail. I blocked the saphenous nerve, left lower extremity with 10 cc of 0.5% Marcaine plain in the operating room. Next, a well-padded thigh tourniquet was applied to the left lower extremity. Next, the left lower extremity was prepped and draped in normal aseptic manner. Next, a timeout was then undertaken verifying the correct patient, extremity, visibility of preoperative markings, availability of the equipment. Next, attention was directed to the left lower extremity. Using a 6 inch Esmarch, left lower extremity was exsanguinated and elevated to 60 degrees for 1 minute. Procedure #1, open reduction internal fixation, bimalleolar fracture, left lower extremity Next, attention was directed to the left lower extremity. Using large C arm, the ankle joint, syndesmotic joint and anatomical placement of the fibular were all marked out using a [place] and sterile marker. Incision was marked out over the fibula. Next, using a #15 blade a full-thickness incision was made down to bone over the fibula. Sharp dissection was carried down and around the fibula. Using a khan elevator, the periosteum and soft tissue was stripped over the distal third of the fibula. The oblique fracture was identified and curetted to remove the hematoma which was eventually evacuated. The incision and fracture area to the distal fibular were flushed with copious michael of normal saline to further evacuate the hematoma and clean the area. The distal fibular fracture was then freed up from some of its soft tissue attachments and put back in place with [id number] tenaculums. The anatomic reduction was confirmed clinically as well as with large C arm fluoroscopy. A 3?0 interfrag screw was placed at 90 degrees across the fracture using AO technique. Next an anatomical plate by Arthrex was placed along the fibula and its position was checked clinically as well as with large C-arm fluoroscopy. The anatomical plate was fixated to the fibula using the manufactures recommendation with the rep in the room with a combination of 3-0 and 3-5 locking and nonlocking screws. The left lower extremity ankle was put through range of motion and there showed no evidence of crepitus or grinding of the hardware in the lateral gutter. Next, attention was directed to the medial malleolus. Incision placement was marked out with sterile marker. Next, using a #15 blade, a full-thickness vision down to bone was made. Careful blunt dissection was carried down to the level of the anterior and posterior colliculi. Care was to retract the posterior tibial tendon which showed no evidence of tearing from the left lower extremity trauma. The displaced tip of the medial malleolus was reduced back to anatomic position and held in place with [id number] tenaculums. Using 2 K wires per the capacity management specialist's recommendation the Q wire was placed across the fracture site followed by 2 4-0 partially-threaded screws using AO technique. The left lower extremity ankle was put through range of motion and showed no evidence of crepitus or grinding in the medial gutter. Procedure #2, stress views, syndesmotic joint, left lower extremity Next, using a large C arm fluoroscopy the left lower extremity was put through stress views to stress the syndesmosis. With the knee flexed and extended the ankle was dorsiflexed and externally rotated which showed evidence of increase tib-fib overlap beyond normal to the syndesmotic joint of the left lower extremity. Procedure #3, syndesmotic repair, left lower extremity Next, attention was directed to the lateral aspect of the repaired fibula. Using large C arm fluoroscopy and K wire, basement of the Arthrex tight rope per the capacity management specialist's recommendation with the rep in room was made using large C arm fluoroscopy. Position of the K wire was checked clinically as well as with large C arm fluoroscopy and showed to be within good anatomic placement. The tight rope was placed across the syndesmosis per the capacity management specialist's recommendations. There showed no evidence of tenting on the medial aspect of the skin. The tight rope was cinched in place with the foot at 90 degrees. The syndesmosis was restressed and showed to have normal anatomic tib-fib overlap with stress views with the knee extended and flexed to left lower extremity. Procedure #4, application of posterior splint, left lower extremity Next, the left lower extremity was wiped clean and patted dry. Both incisions were closed in the same fashion, the deep layer was closed with 3-0 Vicryl in running locking suture technique. The subcutaneous layer was reapproximated and closed using 3-0 Vicryl in running suture technique. The skin was reapproximated and closed with pedro. 3 view postoperative films were taken in the operating room which showed both fractures to be placed back in anatomic position. Again the left lower extremities were cleaned and patted dry. All incisions were dressed with Betadine soaked Adaptic, dry sterile dressing and a double layer Griffin AO splint was applied to left lower extremity in 90 degree fashion. The patient tolerated the procedure and anesthesia well and apparent satisfactory condition and was transported to the PACU for further monitoring prior to discharge home. Vital signs stable and vascular status intact to all digits bilateral. Post Operative Plan: Weightbearing: Nonweightbearing to left lower extremity with assistance of crutches and/or scooter. Full weightbearing right lower extremity. Antibiotics: 2 g cefazolin through the IV DVT Prophylaxis: Aspirin 81 mg Mendoza: None Dressing: Betadine soaked Adaptic, dry sterile dressing and a double layer Griffin AO splint to left lower extremity at 90 degrees. X-Rays: Post-operative films taken on the operating room. Pain Medication: Percocet 5/325, Flexeril 10 mg Follow-up: Patient will follow-up in [address] Brower in private office. Grafts/Implants Used: Arthrex ankle fracture set, x 2 tight ropes Complications None Admit VTE Documentation VTE Present on Admission: No VTE Mechan Device Prophylaxis: SCD's VTE Pharm Prophylaxis ordered?: Yes
[2023-09-24] MEDS: Cefazolin 2 GM in 0.9% Normal Saline (100mL Bag) 100 ML IV (11:29)
--- NOTE | 2023-09-24 11:42 | RAD_ITS ---
PROCEDURE: Intraoperative fluoroscopy. DATE OF EXAMINATION: September 24, 2023. INDICATION: Female, 38 years old. Bimalleolar fracture reduction. FLUOROSCOPY TIME (if supplied): (3 minutes and 22 seconds) minutes/seconds. 7.77 mg RAD/Ankle 2 Views IMPRESSION: Intraoperative imaging provided for bilateral mild annular fracture reduction. Electronically Signed: Ronen Armendariz MD at 13:33 EST ,
[2023-09-24] MEDS: Bupivacaine 0.5% PF 10 ML VIAL (13:40)
== END 2023-09-24 15:35 | disposition home or self-care (01) ==
LOC: SDC 09:03 → AC 09:04
PROVIDERS: PCP Nurse Practitioner; Referring Provider Podiatrist Foot & Ankle Surgery; Visit Provider Podiatrist Foot & Ankle Surgery
PROC: (CPT 27814; principal; 2023-09-24 10:45)
DX: S82.852A Displaced trimalleolar fracture of left lower leg, initial encounter for closed fracture (principal); S93.02XA Subluxation of left ankle joint, initial encounter; W00.0XXA Fall on same level due to ice and snow, initial encounter
CPT/HCPCS: 27814; 27829; 27603; 01480; 36415; 73600; 76000; 80307; 81025; 82306; 82962; 87081; 93005; C1713; J7120; J2405; J3475

== ENCOUNTER 2023-12-30 10:30 | Outpatient (RCR) | payer MEDICAID, SELFPAY ==
--- NOTE | 2023-11-22 09:50 | HP.PTEVAL ---
Patient's Visit Information Visit Information Visit Information: ALVIN HURST is a 38 year old F referred to Physical Therapy by Dr. Omid Brower DPM with a diagnosis of 09/24/23 Left ORIF bi-malleolar fx with syndesmotic repair.. Date of Evaluation: 11/22/23 Physical Therapist: Emily Morrissey DPT Visit Plan Frequency: 2x /Week Duration: 4 Weeks Plan: Per MD: pt using CAM walker for next 2-3 weeks then transfer to brace at 3-4 weeks (written 11/15/23). 09/24/23 Left ORIF bi-malleolar fx with syndesmotic repair. Focus on ankle ROM, edema, and LE strength/stabilization, gait and functional mobility HEP Given IE: Ankle ROM in sitting and supine, gastroc stretch with towel and weight shift Subjective Subjective: Patient reports that Sep 09 she slipped and fell on the ice and she had surgery Sep 24 Left ORIF bi-malleolar fx with syndesmotic repair. She was in a splint and is now in the boot. She has been in a tall CAM walker for about 4 weeks. She just started WBAT last week. She is doing okay with it just slow. Whenever she is up and about she is in the CAM walker- she is not walking on it without. She is not having pain in the ankle more just soreness. Worst: 10/23 Agg: being up on it too much Best: 08/25. Eases: ice and elevation. She reports that it does swell pretty bad. She reports that the foot is sore- not the ankle. Describes the pain is more dull and achy just knows that its there. The top of the foot and toes are N/T its worse when she gets up in the AM and it goes away as she gets moving. Fully I prior to the fall. 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 She is not back to work- hopes to go back today or as quickly as possibly. 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 She feels that she is 60% back to normal. Sleep: still wakes her up- she is not sleeping in the boot. PMHx: none Meds: sprintec Objective Objective: Posture: forward head, rounded shoulders- can correct with cues Gait: step to gait pattern- no AD- tall CAM walker- decreased stance on left LE HR/TR: able in sitting with decreased ROM due to edema Girth:Figure 8: 58 cm, Malls: 28 cm, Mets: 25.5 cm ROM: DF: neutral, PF: 30 degrees, Inver: 15 degrees, Ever: 10 degrees Observation: incision healing well no s/s of infection- does have scabbing- discoloration of the skin in the toes Palpation: tender to touch over foot and medial and lateral malleolus Strength: 4+/5 throughout available range Flex: Gastroc: severe, Soleus: severe SLS: weight shift with UE A Balance/Special Test Scores Lower Extremity Functional Score: 45 Goals Goal 1:: Patient will report participation in home exercise program activities a minimum of 5 days per week, as adjunct to skilled physical therapy intervention in preparation for independent home management upon discharge. Goal Time Frame: 4-6 Weeks Goal 2:: Patient will ambulate >300 feet with a normalized gait pattern Goal Time Frame: 4-6 Weeks Goal 3:: Patient will SLS for 30 sec without LOB Goal Time Frame: 4-6 Weeks Goal 4:: Patient will asc/desc 8 stairs recip with no HR Goal Time Frame: 4-6 Weeks Goal 5:: Patient will report 80% improvement Goal Time Frame: 4-6 Weeks Rehabilitation Potential Physical Therapy Diagnosis: Patient presents with decreased ankle ROM, LE and core strength/stabilization, proprioception, flexibility and muscular endurance leading to abnormal gait and decreased ability to perform ADL's. Rehabilitation Potential: Good Anticipated Interventions Patient/Client Instruction: Educate patient on: Benefits of Fitness Program Therapeutic Exercise to Include: Strength training, Endurance training, Balance training, Coordination, Agility training, Body mechanics, Postural training, Flexibilty training, Gait and locomotor training, Neuromotor development, Passive ROM, Active ROM, Dynamic Lumbar Stabilization and Scapular Strength/Stabilization For the Purpose of:: To improve muscle performance and motor function TENS: Yes Cryotherapy (ice pack, ice massage): Yes Thermo therapy (hot pack): Yes Ultrasound (thermal/non thermal): No Text: Thank you for the opportunity to evaluate your patient. For Medicare and Medicare HMO plans, please review the plan of care and approve it. It will need to be FAXED BACK to us at [phone] for Medicare purposes. For Medicare only, by signing this I certify the plan of care. Please let me know if there are questions or concerns regarding this plan of care. Physician Signature: Date:
--- NOTE | 2023-12-27 11:22 | HP.PTREVAL_ITS ---
Re-Evaluation Intro: Dr. Omid Brower, DPShavon, It has been my pleasure to treat ALVIN HURST over the last 12 visits for 09/24/23 Left ORIF bi-malleolar fx with syndesmotic repair.. Please see the progress note below for an update on the physical therapy plan of care! Subjective Subjective: She reports that she is much better- she can get around and do things now- coming down the stairs is the worst. She is back to work. Worst pain in the last week 09/25. She has no pain today. She is wearing the brace all the time except at night in the house. She goes back to see the MD today. Objective Objective/Function: Posture: forward head, rounded shoulders- can correct with cues Gait: With Brace- decreased DF- poor heel/toe pattern with decreased stance time. Without brace- decreased stance time HR/TR: able instanding- poor TR Girth:Figure 8: 58 cm, Malls: 29 cm, Mets: 25 cm ROM: DF: neutral, PF: 60 degrees, Inver: 30 degrees, Ever: 20 degrees Observation: incision well healed-wearing a brace over the shoe Palpation: not tender to touch Strength: DF: 19 PF: 25 Inver: 11 Ever: 16 Flex: Gastroc: severe, Soleus: severe SLS: 15 sec with brace 5 sec without brace- unable on uneven surfaces Plan Plan Plan: 12/27/23: IE:Per MD: pt using CAM walker for next 2-3 weeks then transfer to brace at 3-4 weeks (written 11/15/23). 09/24/23 Left ORIF bi-malleolar fx with syndesmotic repair. Focus on ankle ROM, edema, and LE strength/stabilization, gait and functional mobility Balance/Gait/Functional tests Balance/Special Test Scores Lower Extremity Functional Score: 64 Goals Goals Goal 1:: Patient will report participation in home exercise program activities a minimum of 5 days per week, as adjunct to skilled physical therapy intervention in preparation for independent home management upon discharge. Goal Time Frame: 4-6 Weeks Goal Progress: Progressing Goal 2:: Patient will ambulate >300 feet with a normalized gait pattern Goal Time Frame: 4-6 Weeks Goal Progress: Progressing Goal 3:: Patient will ambulate on uneven surfaces without pain to ease work related tasks Goal Time Frame: 4-6 Weeks Goal Progress: NEW GOAL Goal 4:: Patient will descend 8 stair without HR with a normalized pattern. Goal Time Frame: 4-6 Weeks Goal Progress: NEW GOAL Goal 5:: Patient will report ability to stand on her feet without the brace for an 8 hour work day Goal Time Frame: 4-6 Weeks Goal Progress: NEW GOAL Anticipated Interventions Anticipated Interventions Patient/Client Instruction: Educate patient on: Benefits of Fitness Program Therapeutic Exercise to Include: Strength training, Endurance training, Balance training, Coordination, Agility training, Body mechanics, Postural training, Flexibilty training, Gait and locomotor training, Neuromotor development, Passive ROM, Active ROM, Dynamic Lumbar Stabilization and Scapular Strength/Stabilization For the Purpose of:: To improve muscle performance and motor function TENS: Yes Cryotherapy (ice pack, ice massage): Yes Thermo therapy (hot pack): Yes Ultrasound (thermal/non thermal): No Re-Evaluation Ending Re-evaluation ending: Please do not hesitate to contact me at [phone] by phone or Fax: if you have questions or concerns regarding this new plan of care! Sincerely, SHOSHANA AnT
--- NOTE | 2024-03-23 14:31 | HP.PT.NRP ---
Patient Information Patient Information: ALVIN HURST was seen in my office for initial evaluation on 11/22/23. The following Plan of Care was established for this patient: POC Established Initial Frequency: 2x /Week Initial Duration: 4 Weeks Anticipated Interventions Patient/Client Instruction: Educate patient on: Benefits of Fitness Program Therapeutic Exercise to Include: Strength training, Endurance training, Balance training, Coordination, Agility training, Body mechanics, Postural training, Flexibilty training, Gait and locomotor training, Neuromotor development, Passive ROM, Active ROM, Dynamic Lumbar Stabilization and Scapular Strength/Stabilization For the Purpose of:: To improve muscle performance and motor function TENS: Yes Cryotherapy (ice pack, ice massage): Yes Thermo therapy (hot pack): Yes Ultrasound (thermal/non thermal): No Last Seen Last Seen: This patient was last seen in our office . Pertinent comments regarding their Physical therapy will appear below: Patient has not attended PT in over 8 weeks- appropriate to continue HEP and be d/c from PT at this time. At this point I will be discontinuing this patient from physical therapy. I would be happy to see this patient again in the future if found appropriate by the physician. Thank you! Emily Morrissey, MAVIS Balance/Gait/Functional tests Balance/Special Test Scores Lower Extremity Functional Score: 64
== END 2023-12-30 19:00 | disposition home or self-care (01) ==
LOC: PT 10:30
PROVIDERS: PCP Nurse Practitioner; Referring Provider Podiatrist Foot & Ankle Surgery; Visit Provider Podiatrist Foot & Ankle Surgery
DX: S82.892D Other fracture of left lower leg, subsequent encounter for closed fracture with routine healing (principal)
CPT/HCPCS: 97110; 97140; 97162; 97164